=== PATIENT | male | born 1970 | race Caucasian/White ===

== ENCOUNTER → 2024-04-14 | Outpatient (CLI) | payer OTHER, SELFPAY ==
[2024-04-14 09:41] LABS: ALB/GLOB Ratio 0.6 RATIO (0.9-2.4); AST(SGOT) 19 U/L (15-37); Alanine Aminotransfer ALT/SGPT 23 U/L (16-61); Albumin, Serum 3.2 g/dL (3.2-5.0); Alkaline Phosphatase 44 U/L (45-117); Anion Gap 7 (5-15); BUN 14 mg/dL (7-18); Calcium,Total 8.9 mg/dL (8.5-10.1); Chloride 101 mmol/L (98-107); Cholesterol 185 mg/dL (200); Creatinine, Serum 1.17 mg/dL (0.70-1.30); EST Glomerular Filtration Rate 69 mL/min (>60); Est Glom Filt Rate - Afr Amer 84 mL/min (>60); Globulin 5.1 g/dL (2.2-4.2); Glucose 109 mg/dL (74-106); High Density Lipoprotein 47 mg/dL; PSA,Total - Annual Screen 2.67 ng/mL (0.00-4.00); Potassium 2.9 mmol/L (3.5-5.1); Protein, Total 8.3 g/dL (6.4-8.2); Sodium Level 138 mmol/L (136-145); Triglycerides 177 mg/dL; Very Low Density Lipoprotein 35 mg/dL (5-40)
[2024-04-14 10:38] LABS: Microalbumin,Random Urine 16.6 mg/L (NO RANGE EST.); Microalbumin:Creatinine Ratio 5.6 mg/g CRE (<30 mg/g CRE)
== END | disposition home or self-care (01) ==
LOC: LAB 08:58
PROVIDERS: PCP Preventive Medicine Occupational Medicine; Referring Provider Preventive Medicine Occupational Medicine; Visit Provider Preventive Medicine Occupational Medicine
DX: I10 Essential (primary) hypertension (principal); E78.2 Mixed hyperlipidemia; Z12.5 Encounter for screening for malignant neoplasm of prostate
CPT/HCPCS: 36415; 80053; 80061; 82043; 82570; 84153; G0103

== ENCOUNTER → 2025-04-06 | Outpatient (CLI) | payer OTHER, SELFPAY ==
--- OUTSIDE RECORDS SUMMARY | 2025-04-06 10:12 | XMS RPT_ITS | CCD ---
Author Organization [facility] Care Team Providers Care Lumber Mover Name Role Phone Cheyenne Espitia Primary Care Provider EDWINA BARBA DO Primary Care Physician [phone] EDWINA BARBA DO Attending Unavailable EDWINA BARBA DO Primary Care Unavailable Edwina Barba DO Primary Care Provider Cheyenne Espitia MD Primary Care Provider EDWINA BARBA Primary Care Unavailable ZAIDA WEEKS Attending Unavailable SELF Referring Unavailable EDWINA BARBA Primary Care Unavailable NIMISHA SORTO Attending Unavailable Edwina Barba Primary Care Unavailable SUNNY REED Attending Unavailable Edwina Barba Referring Unavailable Edwina Barba Attending Unavailable Edwina Barba Primary Care Unavailable Allergies Allergy Classification Reported Allergen(s) Allergy Type Date of Onset Reaction(s) Facility (7 sources) Penicillins; Translations: [PENICILLINS] Propensity to adverse reactions to drug 9 [place], [place] (4 sources) Penicillins Drug Allergy 9 [facility] (1 source) Penicillin; Translations: [penicillin] Drug Allergy Eruption of skin (disorder) [facility] (2 sources) Penicillins Drug Allergy 9 [facility] (1 source) Penicillins Drug Allergy 9 [facility] Medications Current Medications Medication Drug Class(es) Dates Sig (Normalized) Sig (Original) acetaminophen 325 mg / HYDROcodone bitartrate 5 mg oral tablet (1 source) Opioid Agonist Start: 9 take 1 tablet by mouth once as needed HYDROcodone-acetaminoph en (NORCO) 5-325 MG per tablet Take 1 tablet by mouth as needed. 0 02/05/2019 Active cyclobenzaprine hydrochloride 10 mg oral tablet (1 source) Muscle Relaxant Start: 9 cyclobenzaprine (FLEXERIL) 10 MG tablet as needed 0 02/05/2019 Active hydroCHLOROthiazide 25 mg oral tablet (9 sources) Thiazide Diuretic Start: 2 End: 3 take 1 tablet by mouth once daily hydroCHLOROthiazide (HYDRODIURIL, ESIDRIX) 25 mg tablet Indications: Essential hypertension Take 1 tablet by mouth once daily. 90 tablet 3 01/06/2022 Active Start: 05-27-2020 End: 11-27-2020 take 1 tablet by mouth once daily hydroCHLOROthiazide (HYDRODIURIL, ESIDRIX) 25 mg tablet Indications: Essential hypertension take 1 tablet by mouth once daily 30 tablet 5 05/27/2020 11/27/2020 Discontinued Comment on above: TAKE 1 TABLET ONCE D AILY Take 1 tablet by ally th once daily. methylPREDNISolone (3 sources) Corticosteroid Start: 01-06-2022 End: 01-12-2022 methylPREDNISolone (MEDROL, MARIA GUADALUPE,) 4 mg Dose-Pack Indications: Acute pain of left shoulder Follow dosing instructions, take with food. 1 Package 0 01/06/2022 01/12/2022 Active Start: 10-29-2020 End: 11-04-2020 methylPREDNISolone (MEDROL, MARIA GUADALUPE,) 4 mg Dose-Pack Follow dosing instructions, take with food. 1 Package 10/29/2020 11/04/2020 Start: 03-02-2019 methylPREDNISo lone (MEDROL DOSEPACK) 4 MG tablet Indications: History of microdiscectomy , Herniated nucleus pulposus, L4-5 left Take 1 tablet by mouth See Admin Instructions Take by mouth. 1 kit 0 03/02/2019 Active Comment on above: Follow dosing instru ctions, take with food. mupirocin 0.02 mg/mg topical ointment (1 source) RNA Synthetase Inhibitor Antibacterial Start: 09-27-2022 mupirocin 2% topical ointment Apply 1 yaron, Topical, TID, # 15 gram(s), 1 Refill(s), Pharmacy: [facility]/pharmacy #[id number], Ointment, 183, cm, 09/27/22 13:26:00 EST, Height, 105.7 Start Date: 09/27/22 Status: Ordered Completed/Discontinued Medications Medication Drug Class(es) Dates Sig (Normalized) Sig (Original) azithromycin 500 mg oral tablet (1 source) Macrolide Antimicrobial Start: 04-02-2024 End: 04-07-2024 take 1 tablet by mouth once daily azithromycin (ZITHROMAX) 500 mg tablet Indications: Sore throat , Bacterial pharyngitis Take 1 tablet by mouth once daily for 5 days. 5 tablet 04/02/2024 04/07/2024 clotrimazole 10 mg oral lozenge (1 source) Azole Antifungal Start: 04-02-2024 End: 04-09-2024 clotrimazole (MYCELEX) 10 mg michelle Indications: Sore throat , Thrush Use 1 Michelle as instructed five times a day for 7 days. 35 tablet 04/02/2024 04/09/2024 dexamethasone phosphate 10 mg/ml injectable solution (2 sources) Corticosteroid Start: 04-02-2024 End: 04-02-2024 dexAMETHasone sodium phosphate 10 mg for oral administration (DECADRON) Start: 04-02-2024 End: 04-02-2024 take 1 dose by mouth once 10 mg, ORAL, ONCE, 1 dose, O n 04/02/24 at 1900, For Oral Use Only - May be mixed with food or beverage for administration. diclofenac sodium 75 mg delayed release oral tablet (5 sources) Nonsteroidal Anti-inflammatory Drug Start: 05-15-2019 End: 06-14-2019 take 1 tablet by mouth twice daily diclofenac (VOLTAREN) 75 MG EC tablet Take 1 tablet by mouth 2 times daily 60 tablet 0 05/15/2019 06/14/2019 Discontinued (Therapy completed) gabapentin 300 mg oral capsule (10 sources) Anti-epileptic Agent Start: 05-15-2019 End: 06-14-2019 take 1 capsule by mouth three times daily gabapentin (NEURONTIN) 300 MG capsule Take 1 capsule by mouth 3 times daily for 30 days. 90 capsule 0 05/15/2019 06/14/2019 Discontinued (Therapy completed) End: 06-14-2019 gabapentin (NEURONTIN) 100 M G capsule Take 100 mg by mouth as needed. 0 06/14/2019 Discontinued (Therapy completed) Lisinopril (6 sources) Angiotensin Converting Enzyme Inhibitor End: 06-14-2019 LISINOPRIL PO Indications: patient just recently prescribed but has not filled prescription yet. Take by mouth Indications: patient just recently prescribed but has not filled prescription yet. 0 06/14/2019 Discontinued (Therapy completed) LISINOPRIL PO In dications: patient just recently prescribed but has not filled prescription yet. Take by mouth Indications: patient just recently prescribed but has not filled prescription yet. 0 Active prednisoLONE acetate 10 mg/ml ophthalmic suspension (4 sources) Corticosteroid Start: 02-22-2020 End: 01-06-2022 prednisoLONE acetate (PRED FORTE) 1 % ophthalmic suspension Indications: Episcleritis of both eyes Use 1 Drop in both eyes three times daily. X 1 week, then twice a day x 1 week, then once a day x 1 week 1 Bottle 02/22/2020 01/06/2022 Discontinued (Course of therapy completed) Start: 02-22-2020 End: 01-06-2022 prednisoLONE acetate (PRED F ORTE) 1 % ophthalmic suspension Indications: Episcleritis of both eyes Use 1 Drop in both eyes three times daily. X 1 week, then twice a day x 1 week, then once a day x 1 week 1 Bottle 0 02/22/2020 01/06/2022 Discontinued (Course of therapy completed) Comment on above: Use 1 Drop in both e yes three times daily. X 1 week, then twice a day x 1 week, then once a day x 1 week Problems Active Problems Problem Classification Problem Date Documented Date Episodic/Chronic Disorders of lipid metabolism (1 source) Mixed hyperlipidemia; Translations: [Mixed hyperlipidemia] Onset: 04-04-2025 Chronic Essential hypertension (12 sources) Essential hypertension; Translations: [Essential (primary) hypertension] Onset: 02-01-2019 02-01-2019 Chronic Fluid and electrolyte disorders (1 source) Hypokalemia; Translations: [Hypokalemia] Onset: 04-04-2025 Episodic Hemorrhoids (1 source) Hemorrhoids 09-27-2022 Episodic Other connective tissue disease (1 source) Swelling of lower limb; Translations: [Leg swelling] Episodic Other eye disorders (2 sources) Other specified disorders of eye and adnexa; Translations: [Other ill-defined disorders of eye] Onset: 03-02-2025 03-02-2025 Episodic Other non-traumatic joint disorders (1 source) Shoulder pain; Translations: [Pain in left shoulder] Episodic Other non-traumatic joint disorders (1 source) Pain in right shoulder; Translations: [Pain in joint, shoulder region] 10-29-2020 Episodic Other nutritional; endocrine; and metabolic disorders (1 source) Obese class I; Translations: [Obesity, unspecified] Chronic Other screening for suspected conditions (not mental disorders or infectious disease) (2 sources) Patient encounter status; Translations: [Encounter for screening for malignant neoplasm of colon] Onset: 04-04-2025 Episodic Other upper respiratory disease (1 source) Ulcer of nose 09-27-2022 Episodic Spondylosis; intervertebral disc disorders; other back problems (1 source) Degeneration of lumbar intervertebral disc 09-27-2022 Chronic Unclassified (2 sources) Patient encounter status 09-27-2022 Past or Other Problems Problem Classification Problem Date Documented Date Episodic/Chronic Bacterial infection; unspecified site (1 source) Other specified bacterial agents as the cause of diseases classified elsewhere; Translations: [Bacterial pharyngitis] Onset: 04-02-2024 Episodic Mycoses (2 sources) Candidiasis of mouth; Translations: [Candidal stomatitis] Onset: 04-02-2024 04-02-2024 Episodic Other upper respiratory infections (4 sources) Sore throat symptom; Translations: [Acute pharyngitis, unspecified] Onset: 04-02-2024 04-02-2024 Episodic Spondylosis; intervertebral disc disorders; other back problems (7 sources) Radiculopathy due to lumbar intervertebral disc disorder; Translations: [Intervertebral disc disorders with radiculopathy, lumbar region] Onset: 12-29-2018 12-29-2018 Episodic Results Test Name Value Interpretation Reference Range Facility [facility] 03-02-2025 CNOV Office Visit ([facility] ) RAUL FARAH SR ([id number]) 1970 M Date Time Provider Department 03/02/25 2:20 PM [facility] During your visit today, we recorded the following information about you: Temperature Pulse Respiration Blood pressure 97.6 degrees 88/minute 18/minute 138/93 Weight 104.3 kg Nimisha Sorto, RIP.BEATER ROOM SUPERVISOR 03/02/2025 3:25 PM Signed - Use lubricating (artificial tears) eye drops as directed and see if the redness and discomfort improve. - If needed, try an [id number] allergy eye drop (Pataday) to relieve irritation. - If your symptoms do not improve, call the clinic tomorrow to check if we have restocked the fluorescein (eye stain) supplies. If we have them, come back for the stain test to rule out a scratch and, if necessary, begin antibiotic eye drops. - If you cannot wait for our supplies or your eye pain worsens, go to the emergency room for an eye stain examination and possible antibiotic treatment. Nimisha Sorto, RIP.BEATER ROOM SUPERVISOR 03/02/2025 4:31 PM Signed [facility] Carter Jason Farah is a 54 year old male. Patient presents with: Eye Problem: LT eye irritation/ redness, Pt states he feels like something is in his eye x 2-3 days Eye Problem Eye Redness and Pain: - Redness and mild pain in the eye x2 days. - Denies pruritus, photophobia, or significant changes in vision; notes a glassy feeling in the eye. - Denies wearing contact lenses. - No known seasonal allergies; denies rhinorrhea, nasal congestion, or cough. - Denies rubbing the eye. - Tried re-wetting drops without relief. 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 Review of Systems Eyes: (+) eye redness, (+) ocular pain, (+) ocular pressure, (-) eye pruritus, (-) photophobia, (-) visual changes, (-) eye dryness Ears/Nose/Mouth/Throat : (-) rhinorrhea, (-) nasal congestion Respiratory: (-) cough Objective BP 138/93 Pulse 88 Temp 36.4 ?C (97.6 ?F) Resp 18 Wt 104.3 kg (230 lb) SpO2 97% BMI 30.35 kg/m? Physical Exam Vitals and nursing note reviewed. Constitutional: General: He is not in acute distress. Eyes: Pupils: Pupils are equal, round, and reactive to light. Comments: The lateral aspect of the sclera to the left eye erythematous. No drainage noted. No foreign object visualized. Cardiovascular: Rate and Rhythm: Normal rate and regular rhythm. Heart sounds: Normal heart sounds. No murmur heard. No friction rub. No gallop. Pulmonary: Effort: Pulmonary effort is normal. No respiratory distress. Breath sounds: Normal breath sounds. No stridor. No wheezing, rhonchi or rales. Skin: General: Skin is warm and dry. Capillary Refill: Capillary refill takes less than 2 seconds. Neurological: Mental Status: He is alert and oriented to person, place, and time. Psychiatric: Behavior: Behavior is cooperative. 1. Irritation of left eye (H57.89) - Left eye erythematous with mild discomfort, no pruritus, photophobia, or significant visual changes; no foreign bodies or discharge observed on examination. - Differential diagnosis includes conjunctivitis and corneal abrasion. - Unable to perform fluorescein staining due to lack of supplies; advised patient to visit the emergency room for staining to rule out corneal abrasion, which may require antibiotic eye drops. At this time patient declines going to the ED for the fluorescein stain. He would like to try OTC drops first. - Recommended trial of artificial tears and allergy eye drops as directed on the labels. - I advised patient to call clinic tomorrow in regards if supplies have come in to have the fluorescein stain completed if no improvement with OTC eyedrops. - If you cannot wait for our supplies or your eye pain worsens, go to the emergency room for an eye stain examination and possible antibiotic treatment. - Advised patient to monitor symptoms and return for evaluation if no improvement or worsening occurs; patient understands and agrees with the plan. and Recording using [employer] software for draft documentation of the visit was discussed with the patient/authorized wireless sales representative; all questions welcomed and answered. Patient/authorized wireless sales representative agreed to proceed MDM Procedures Referring Provider: SELF [200] Allergies As of Date: 03/02/2025 Noted Allergy Reaction PENICILLINS 12/26/2018 4 - Hives Date Reviewed: 03/02/2025 Reviewed by: Nimisha Sorto APRN.BEATER ROOM SUPERVISOR - Fully Assessed Reason for Visit: Eye Problem [43] Cmt: LT eye irritation/ redness, Pt states he feels like something is in his eye x 2-3 days Primary Visit Diagnosis:Irritation of left eye [H57.89] Prescriptions as of 03/02/2025 - hydroCHLOROthiazide (HYDRODIURIL (more content not included)... Normal [facility] Comprehensive Metabolic Prof ilon 04-14-2024 Albumin [Mass/Vol] 3.2 g/dL Normal 3.2-5.0 [facility] Comment on above: Performed By: #### L 500.4050, L500.4100, L501.9910, L502.0250 #### [facility] [address] [place], [address] Albumin/Globulin [Mass ratio] 0.6 {ratio} Low 0.9-2.4 [facility] Comment on above: Performed By: #### L 500.4050, L500.4100, L501.9910, L502.0250 #### [facility] [address] [place], [address] ALK P 44 U/L Low 45-117 [facility] Comment on above: Performed By: #### L 500.4050, L500.4100, L501.9910, L502.0250 #### [facility] [address] [place], [address] ALT [Catalytic activity/Vol] 23 U/L Normal 16-61 [facility] Comment on above: Performed By: #### L 500.4050, L500.4100, L501.9910, L502.0250 #### [facility] [address] [place], [address] AST [Catalytic activity/Vol] 19 U/L Normal 15-37 [facility] Comment on above: Performed By: #### L 500.4050, L500.4100, L501.9910, L502.0250 #### [facility] [address] [place], [address] Bilirubin [Mass/Vol] 0.70 mg/dL Normal 0.20-1.00 [facility] Comment on above: Result Comment: For patients on eltrombopag therapy, use of Dimension [place] TBIL is not recommended. Performed By: #### L 500.4050, L500.4100, L501.9910, L502.0250 #### [facility] [address] [place], [address] BUN/CRE 12.0 RATIO Normal 10-20 [facility] Comment on above: Performed By: #### L 500.4050, L500.4100, L501.9910, L502.0250 #### [facility] [address] [place], [address] CA,Total 8.9 mg/dL Normal 8.5-10.1 [facility] Comment on above: Performed By: #### L 500.4050, L500.4100, L501.9910, L502.0250 #### [facility] [address] [place], [address] Chloride [Moles/Vol] 101 mmol/L Normal 98-107 [facility] Comment on above: Performed By: #### L 500.4050, L500.4100, L501.9910, L502.0250 #### [facility] [address] [place], [address] CO2 [Moles/Vol] 30.0 mmol/L Normal 21.0-32.0 [facility] Comment on above: Performed By: #### L 500.4050, L500.4100, L501.9910, L502.0250 #### [facility] [address] [place], [address] Creatinine [Mass/Vol] 1.17 mg/dL Normal 0.70-1.30 [facility] Comment on above: Result Comment: The validity of the calculated GFR GFRAA in patients over 70 years has not been determined. Clinical correlation is essential. Performed By: #### L 500.4050, L500.4100, L501.9910, L502.0250 #### [facility] [address] [place], [address] EST GFR - AA 84 mL/min Normal >60 [facility] Comment on above: Result Comment: Afri can Danish GFR Calc Performed By: #### L 500.4050, L500.4100, L501.9910, L502.0250 #### [facility] [address] [place], [address] GAP 7 Normal 5-15 [facility] Comment on above: Performed By: #### L 500.4050, L500.4100, L501.9910, L502.0250 #### [facility] [address] [place], [address] GFR/1.73 sq M.predicted among non-blacks MDRD (S/P/Bld) [Vol rate/Area] 69 mL/min/{1.73_m2} Normal >60 [facility] Comment on above: Result Comment: Non- GFR Calc Performed By: #### L 500.4050, L500.4100, L501.9910, L502.0250 #### [facility] [address] [place], [address] Globulin (S) [Mass/Vol] 5.1 g/dL High 2.2-4.2 [facility] Comment on above: Performed By: #### L 500.4050, L500.4100, L501.9910, L502.0250 #### [facility] [address] [place], [address] Glucose [Mass/Vol] 109 mg/dL High 74-106 [facility] Comment on above: Result Comment: Fast ing Glucose result from 100 to 125 mg/dL suggests IMPAIRED HOMEOSTASIS per A.D.A. criteria. Performed By: #### L 500.4050, L500.4100, L501.9910, L502.0250 #### [facility] [address] [place], [address] Potassium [Moles/Vol] 2.9 mmol/L Low 3.5-5.1 [facility] Comment on above: Performed By: #### L 500.4050, L500.4100, L501.9910, L502.0250 #### [facility] [address] [place], [address] Sodium [Moles/Vol] 138 mmol/L Normal 136-145 [facility] Comment on above: Performed By: #### L 500.4050, L500.4100, L501.9910, L502.0250 #### [facility] [address] [place], [address] T PROT 8.3 g/dL High 6.4-8.2 [facility] Comment on above: Performed By: #### L 500.4050, L500.4100, L501.9910, L502.0250 #### [facility] [address] [place], [address] Urea nitrogen [Mass/Vol] 14 mg/dL Normal 7-18 [facility] Comment on above: Performed By: #### L 500.4050, L500.4100, L501.9910, L502.0250 #### [facility] [address] [place], [address] Lipid Profileon 04-14-2024 Cholesterol [Mass/Vol] 185 mg/dL Normal 200 [facility] Comment on above: Result Comment: <200 mg/dL Desirable 200-240 mg/dL Borderline >240 mg/dL High Risk Performed By: #### L 500.4050, L500.4100, L501.9910, L502.0250 #### [facility] [address] [place], [address] Cholesterol in HDL [Mass/Vol] 47 mg/dL Normal [facility] Comment on above: Result Comment: The drugs N-Acetylcysteine and Metamizole may falsely depress this assay. Reference Range HDL <40 mg/dL Low HDL Cholesterol HDL >or= 60 mg/dL High HDL Cholesterol Performed By: #### L 500.4050, L500.4100, L501.9910, L502.0250 #### [facility] [address] [place], [address] Cholesterol in LDL [Mass/Vol] 103 mg/dL Normal 0-130 [facility] Comment on above: Performed By: #### L 500.4050, L500.4100, L501.9910, L502.0250 #### [facility] [address] [place], [address] Cholesterol in VLDL [Mass/Vol] 35 mg/dL Normal 5-40 [facility] Comment on above: Performed By: #### L 500.4050, L500.4100, L501.9910, L502.0250 #### [facility] [address] [place], [address] Triglyceride [Mass/Vol] 177 mg/dL Normal [facility] Comment on above: Result Comment: The drugs N-Acetylcysteine and Metamizole may falsely depress this assay. Serum Triglycerides Reference Interval Normal <150 mg/dL Borderline high 150 - 199 mg/dL High 200 - 499 mg/dL Very High > or = 500 mg/dL Performed By: #### L 500.4050, L500.4100, L501.9910, L502.0250 #### [facility] [address] [place], [address] Microalb:Creat Ratio,Random URon 04-14-2024 Creatinine [Mass/Vol] 297.00 mg/dL Normal NO RAN GE EST. [facility] Comment on above: Performed By: #### L 500.4050, L500.4100, L501.9910, L502.0250 #### [facility] [address] [place], [address] MALB:CRE 5.6 mg/g CRE Normal <30 mg/g CRE [facility] Comment on above: Performed By: #### L 500.4050, L500.4100, L501.9910, L502.0250 #### [facility] [address] [place], [address] MICROALBUMIN,UR 16.6 mg/L Normal NO RANGE EST. [facility] Comment on above: Performed By: #### L 500.4050, L500.4100, L501.9910, L502.0250 #### [facility] [address] [place], [address] PSA,Total - Annual Screenon 04-14-2024 PSA,TOT SCREEN 2.67 ng/mL Normal 0.00-4.00 [facility] Comment on above: Result Comment: This test was performed using the TPSA assay method for the [employer] chemistry system. Values obtained with different assay methods cannot be used interchangably. When changing PSA assays in the course of monitoring a patient, additional sequential testing should be carried out to confirm baseline values. Performed By: #### L 500.4050, L500.4100, L501.9910, L502.0250 #### [facility] [address], [address] CNOVon 04-02-2024 CNOV Office Visit ([facility] ) RAUL FARAH ([id number]) 1970 M Date Time Provider Department 04/02/24 6:20 PM ZAIDA WEEKS During your visit today, we recorded the following information about you: Temperature Pulse Respiration Blood pressure 98.1 degrees 106/minute 16/minute 122/82 Zaida Weeks APRN.[facility] 04/02/2024 7:17 PM Addendum -Please see your PCP if your symptoms persist. Go directly to Emergency Department with high fevers, chest pain, difficulty breathing or not able to tolerate fluids. -Start taking medication as soon as possible. If you are not feeling any better within 24 to 48 hours or continue to have fevers, go to the emergency room. -We did a swab for fungal infection of the throat, we will let you know if anything comes back positive. This may take a few days to show results. Start taking Mycelex GABY. -We also swabbed you for strep. -I want to start treating you for both because of severity of your symptoms and how long you have had it. -Start taking azithromycin for bacterial infection. -You can continue taking Claritin, using the throat spray, and DayQuil NyQuil. Take ibuprofen or Tylenol for fevers or pain. -Change your toothbrush 24 hours after starting antibiotic so you do not reinfect yourself. STREP INFECTIONS: Streptococcal bacteria can cause a sore throat, ear and sinus infections, and skin diseases. Strep throat is diagnosed by a special throat swab or culture test. These infections require either an antibiotic shot or an oral antibiotic medicine to get rid of all the bacteria and prevent rheumatic fever, a dangerous complication. The symptoms of Strep infection, however, usually get better after just 2-3 days of drug treatment. These infections are very contagious; any close contacts who have a fever, sore throat, or illness symptoms should see their doctor right away. Strep is no longer contagious after 24 hours of antibiotic treatment so you may return to school or work if your fever and pain are better in one day. Strep infections can cause serious complications including throat abscess, rheumatic fever and kidney disease, so be sure to take all your antibiotic medicine. See your doctor or return here if your symptoms worsen or are not improved in 3 days or for difficulty breathing or inability to swallow. THRUSH: DEFINITION: White, irregularly shaped patches that coat the inside of the mouth and sometimes the tongue, adhere to the mouth, and cannot be washed away or wiped off easily like milk. (If the only symptom is a uniformly white tongue, it's due to a milk diet, not thrush.) Thrush causes mild discomfort. Bottle-fed or breast-fed child CAUSE: Thrush is caused by a yeast (Coral) that grows rapidly on the lining of the mouth in areas abraded by prolonged sucking (as when a baby sleeps with a bottle or pacifier). A large pacifier or nipple can also injure the lining of the mouth. Thrush may also occur when your child has recently been taking a broad-spectrum antibiotic. Thrush is not contagious since it does not invade normal tissue. HOME CARE: Nystatin Oral Medicine. The drug for clearing this up is nystatin oral suspension. It requires a prescription. Give 1 ml of nystatin four times daily. Place it in the front of the mouth on each side (it doesn't do any good once it's swallowed). If the thrush isn't responding, rub the nystatin directly on the affected areas with a cotton swab or with gauze wrapped around your finger. Apply it after meals,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 PROCEDURE NOTE PREOPERATIVE DIAGNOSIS(ES) Lumbar radiculopathy Lumbar disc displacement Lumbar canal stenosis without neurogenic claudication Lumbar DDD POSTOPERATIVE DIAGNOSIS(ES): Same OPERATION: Left L4-5 lumbar transforaminal epidural steroid injection under fluoroscopy. ANESTHESIA: versed 3mg, fentanyl 50 mcg IV INDICATIONS: The patient presents for lumbar transforaminal epidural steroid injection. Since the last visit, the patient denies any new pain complaints and denies any focal neurological deficits. As discussed and outlined in the office and confirmed today, the plan is to proceed with lumbar transforaminal epidural steroid injection. The risks and benefits of the procedure were discussed. Specifically, the risks of bleeding, infection, inadvertent dural puncture, spinal heaches, vasovagal reaction, epidural hematoma, partial or permanent nerve injury were covered. The potential side effects of medications used in procedures including increase in lumbar pain, headaches, facial redness or warmth (flushing), anxiety or mood swings, sleeplessness, fever, high blood sugar, brief reduction in immunity were discussed. The patient expressed understanding of potential risks and wishes to proceed with the procedure. OPERATIVE PROCEDURE: The patient was brought to the operating room. The patient was placed in the prone position with routine monitors placed. The lower back was prepped in sterile fashion. Upon AP projection under fluoroscopy, L4-5 level was identified. The fluoroscopy was rotated in oblique projection to identify the neuroforamen. Entry point was marked and anesthetized with 0.25% Marcaine. This was followed by insertion of a 5 inch spinal needle, which was inserted and advanced towards the 12 o' clock of the L4-5 neuroforamen. Once the Needle tip contacted the inferior lateral aspect of the pedicle, aspiration was performed which was negative for blood or CSF. This was followed by injection of Omnipaque 300, which revealed a spread through the neuroforamen into the anterior epidural space. There was no evidence of intravascular or intrathecal flow. This was then followed by a total injection of 3 mL of 0.25% Marcaine with 40 mg of Depomedrol. The patient tolerated the procedure well. The needle was removed intact. Dry dressing was placed over the injection site. The patient was taken to the recovery room in stable condition. EBL: nil Start time: 11:16 AM End time: 11:21 AM I was present the entire time and personally performed the procedure. SIGNATURE: Toñito Stafford MD DATE: January 11, 2019 TIME: 11:23 AM [facility] PT EDon 01-11-2019 PT ED HNO ID: [id number] Author: Katherine Jose RN Service: Nursing Author Type: Registered Nurse Type: Patient Education Filed: 01/11/2019 11:45 AM Note Text: POST OP LEARNING RESPONSE INSTRUCTION PROVIDED TO: Patient METHOD OF INSTRUCTION: Teach Back . Written instruction - handouts Verbal instruction PATIENT / FAMILY RESPONSE: Verbalizes understanding of: POST-PROCEDURE INSTRUCTIONS-Correct actions to take to reduce post procedure complications FOLLOW-UP PLAN: Complete - No need for follow-up SUPPLEMENTAL MATERIAL: None REFERRAL (RECOMMENDATION): None Electronically Signed By: Katherine Jose RN In Department: [facility] SURGERY [facility] PT ED HNO ID: [id number] Author: Dimitri Curry RN Service: Nursing Author Type: Registered Nurse Type: Patient Education Filed: 01/11/2019 10:24 AM Note Text: PRE OP LEARNING ASSESSMENT PROCEDURE/SURGERY: SURGERY: pain block READINESS TO LEARN COGNITIVE ABILITY: Alert and oriented MOTIVATION TO LEARN: Eager FAMILY SUPPORT: High - Very involved in pt care PATIENT LEARNS BEST BY: Written Instruction - Hand-outs Verbal Instruction FACTORS AFFECTING LEARNING: None PHYSICAL LIMITATIONS AFFECTING LEARNING: None Electronically Signed By: Dimitri Curry RN In Department: [facility]GERY [facility] XR FLUOROSCOPYon 01-11-2019 XR FLUOROSCOPY * * *Final Report* * * DATE OF EXAM: Jan 11 2019 11:24AM [facility] 5513 - XR FLUOROSCOPY / PROCEDURE REASON: pain * * * * Physician Interpretation * * * * Study: Pain management. XR FLUOROSCOPY HISTORY: Indication: pain PAIN TECHNIQUE: Fluoroscopic Radiation Summary: Plane A, Air Kerma: 8.5 mGy Dose Area Product (DAP): 798.4 mGy*cmS2 Fluoro time: 0:15 min:sec Images obtained: 3 Spot film images under fluoroscopic guidance. Images were stored in a permanent archive. Comparison: NONE. RESULT: Findings: Tip of the needle projects over the lateral aspect of L5 vertebra on the LEFT side. Contrast is seen with the tip in the See procedural note in Epic for further discussion. IMPRESSION: As discussed above Assistant Reading Teacher: CRISTÓBAL Transcribe Date/Time: Jan 11 2019 1:12P Dictated by : RAUL FARAH DO This examination was interpreted and the report reviewed and electronically signed by: RAUL FARAH DO on Jan 11 2019 1:12PM EST [id number] [facility] HOSPon 01-01-2019 HOSP Patient:Raul Farah MRN: Height:6' .008(1.829 m) Weight:227 lb 1.2 oz (103 kg) Outpatient Medications as of 01/11/19: NAPROXEN ORAL gabapentin (NEURONTIN) 300 mg capsule meloxicam (MOBIC) 15 mg tablet Admission/Clinic Administered Medications as of 01/11/19: NaCl 0.9% iv infusion Problem List: Intervertebral disc disorder with radiculopathy of lumbar region [M51.16] Allergies: Penicillins Date Verified: 01/11/19 Lab Values No results within the last 30 days for the following basenames: K,HCT Progress Notes (PT [facility]): Cliff Chapman, PT 01/04/2019 5:34 PM Signed Episode Visit Count: 1 Therapist That Will Oversee The Plan Of Care: Cliff Chapman Start of Care Date: 01/04/19 Onset Date: 11/20/18 Patient Identified by Name and Date of : Yes [facility] PHYSICAL THERAPY EVALUATION PLAN OF CARE: Assessment: Raul Farah presents with the diagnosis of L4-5 disc herniation with left sided radicular symptoms. He presents with impairments of severely limited lumbar range of motion, poor core strength, poor body mechanics, currently unable to perform work tasks, and has decreased tolerance for sitting, standing, walking, and sleeping. He may benefit from skilled therapy services to improve the above noted deficits to decrease pain and return to prior level of function. Patient responded very well today in clinic to extension bias and traction. He was able to bear weight equally through both legs post session and has centralized symptoms to the hip. Patient thoroughly educated on centralization vs peripheralization and positions to avoid to exacerbate disc herniation. Classification Low Back Pain Subgroup Classification: Specific exercise subgroup: recommended visits 8. Specific Exercies Subgroup Classification based on: directional preference;centralizat ion Prognosis: Fair Fair due to: clinical presentation;limited tolerance to activity;occupational demands Goals for Episode of Care: created on 01/04/19 through 03/06/19 Independent in home exercises. Patient will decrease pain rating by 2 points to meet minimal clinical important difference for numeric pain rating scale. Restore pain-free lumbar ROM to WNL in all directions to allow for improved functional movility Stand / Walk As needed for ADLs and work tasks without pain/symptoms. Sleep through night without pain/symptoms. Maintain proper sitting posture throughout session Patient will be able to correct postural deviations independently in order to improve postural alignment of trunk during functional activities, allow for normal mechanics, to decrease current pain and prevent future recurrence. Patient will increase strength of trunk to 5/5 to allow for return to prior functional status and perform ADLs. Planned Interventions, Frequency, and Duration: Current Frequency: 2x/week Duration: 8 weeks Total Number of Visits Planned: 12 Planned Treatment Interventions: Therapeutic exercise;Manual therapy;Neuromuscular re-education;Self-usp management;Patient/Fam alvaro/Caregiver Education;Body Mechanics Training Patient demonstrates good understanding of plan of care and treatment. The above goals and plan of care were discussed and agreed upon by patient/family. SUBJECTIVE: Ralu Farah is a 48 year old male seen today for Back pain since November 20. Red Flags Vertebral Fracture Clinical Reasoning: No identified risk factors Abdominal Aortic Aneurysm Clinical Reasoning: No identified risk factors. Cancer Clinical Reasoning: No identified risk factors. Infection Clinical Reasoning: No identified risk factors. Cauda Equina Syndrome Clinical Reasoning: No identified risk factors. Red Flags - Cervical Cancer Clinical Reasoning: No identified risk factors. Infection Clinical Reasoning: No identified risk factors. Pain: Pain Pain Level: 10 Pain Location: Buttocks - Left;Foot - Left Description: Numbness;Tingling;Achi ng;Sharp Frequency: Continuous Post Treatment Pain Post Treatment Pain Score: 4/10 Post Treatment Pain Location: Buttocks - Left Post Treatment Pain Description: Sore OBJECTIVE MEASURES WITH LEVEL OF FUNCTION: Lumbar Spine AROM Lumbar Flexion: Major limitation Lumbar Extension: Major limitation Lumbar R Side-Bend: Moderate limitation Lumbar L Side-Bend: Major limitation Lumbar R Rotation: Major limitation Lumbar L Rotation: Major limitation Repeated Test Movements - Lumbar REIL - Symptoms During: decreases REIL - Symptoms After: better;centralized LE Strength Trunk Strength: 2+/5 R LE Strength: 5/5 L LE Strength: 5/5 Special Tests - Hip and Spine Hip and Spine Special Tests: SLR Test SLR Test: Left Positive;Right Positive Education: Education Learning Preferences: Demonstration;Explanat ion;Performance;Printe d Materials Barriers: None Learning/educational needs: Home exercise program;Plan of Care;Posture;Body Mechanics Education Provided: Yes, see treatment interventions for education provided Education Provided To: Patient Education Mode/Type: Demonstration;Explanat ion/Discussion;Literat ure/Printed Materials;Performance; Teach Back Response to Education/Teach Back: States/Identifies;Retu rn Demonstration TREATMENT: Evaluation Therapeutic Exercise: 1: Prone lying x 5 min 2: Prone propped on eblows x 4 min 3: Prone press ups x10 4: Pt educated on proper posture and postioning, motions to avoid, and concepts of centralization vs peripheralization 5: Supine lying with feet propped on stool x 5 min Skilled Intervention: Patient was educated in proper exercise technique and purpose for exercises. Skilled judgment was provided in selection of appropriate interventions. Provided written instruction for home exercise program to facilitate proper performance and compliance. Correct performance of therapeutic exercises was facilitated with verbal, visual and tactile cuing. Manual Therapy: 1: Manual lumbar belt traction with feet elevated on stool x 10 min Skilled Intervention: Manual skills to improve joint mobility, ROM, and decrease pain. Utilized anatomy knowledge of the therapist, and assessment of patient's response to intervention. Billing: [facility]: Evaluation - Low Complexity (23492) Therapeutic Exercise (56071): 1:1 time: 18 minutes (1 unit: 8-22 mins) Manual Therapy (22367): 1:1 time: 10 minutes (1 unit: 8-22 mins) Total time: 49 minutes Cliff Chapman PT Progress Notes ([facility]): Jayla Mejia 01/02/2019 3:02 PM Signed Patient called and stated he tried going to the pharmacy to get a refill of gabapentin and the pharmacy refused to fill it. Patient said his PCP was the one who originally prescribed it and after his MRI Dr. Espitia told him to stop taking it. He then saw Mo Harden and he told the patient to take more of it. It looks like Mo Harden refilled it but the pharmacy seems to have some sort of complications with the refill. Please advise Mo Harden PAC 01/03/2019 10:17 AM Signed I called the pharmacy and clarified the prescription. They have my most recent Rx of 300 mg pills 3 times a day. They refilled this for him this morning. I tried to call the patient and ended up leaving a message to take as directed and call me if there are any questions. Mo Harden PAC Normal [facility] Vital Signs Date Time Vital Sign Value Performing Clinician Facility 03-02-2025 14:39-0400 Diastolic blood pressure 93 mm[Hg] Nimisha Sorto APRN.BEATER ROOM SUPERVISOR Work Phone: [facility] Comment on above: BP recheck 03-02-2025 14:39-0400 Systolic blood pressure 138 mm[Hg] Nimisha Sorto APRN.BEATER ROOM SUPERVISOR Work Phone: [facility] Comment on above: BP recheck 03-02-2025 14:37-0400 Body mass index (BMI) [Ratio] 30.35 kg/m2 Nimisha Sorto APRN.BEATER ROOM SUPERVISOR Work Phone: [facility] 03-02-2025 14:37-0400 Body temperature 97.59 [degF] Nimisha Sorto APRN.BEATER ROOM SUPERVISOR Work Phone: [facility] 03-02-2025 14:37-0400 Body weight 104.33 kg Nimisha Sorto APRN.BEATER ROOM SUPERVISOR Work Phone: [facility] 03-02-2025 14:37-0400 Heart rate 88 /min Nimisha Sorto APRN.BEATER ROOM SUPERVISOR Work Phone: [facility] 03-02-2025 14:37-0400 Respiratory rate 18 /min Nimisha Sorto APRN.BEATER ROOM SUPERVISOR Work Phone: [facility] 03-02-2025 14:37-0400 SaO2% (BldA) [Mass fraction] 97 % Nimisha Sorto APRN.BEATER ROOM SUPERVISOR Work Phone: [facility] 04-02-2024 18:25-0400 Body temperature 98.1 [degF] Zaida Shevchuk MEDICAL RECORD CODER.BEATER ROOM SUPERVISOR Work Phone: [facility] 04-02-2024 18:25-0400 Diastolic blood pressure 82 mm[Hg] Zaida Shevchuk MEDICAL RECORD CODER.BEATER ROOM SUPERVISOR Work Phone: [facility] 04-02-2024 18:25-0400 Heart rate 106 /min Zaida Shevchuk MEDICAL RECORD CODER.BEATER ROOM SUPERVISOR Work Phone: [facility] 04-02-2024 18:25-0400 Respiratory rate 16 /min Zaida Shevchuk MEDICAL RECORD CODER.BEATER ROOM SUPERVISOR Work Phone: [facility] 04-02-2024 18:25-0400 SaO2% (BldA) [Mass fraction] 98 % Zaida Shevchuk MEDICAL RECORD CODER.BEATER ROOM SUPERVISOR Work Phone: [facility] 04-02-2024 18:25-0400 Systolic blood pressure 122 mm[Hg] Zaida Shevchuk MEDICAL RECORD CODER.BEATER ROOM SUPERVISOR Work Phone: [facility] 01-06-2022 14:59-0400 Body height 185.4 cm Dasia Zach MEDICAL RECORD CODER.BEATER ROOM SUPERVISOR Work Phone: [facility] 01-06-2022 14:59-0400 Body weight 104.01 kg Dasia Zach MEDICAL RECORD CODER.BEATER ROOM SUPERVISOR Work Phone: [facility] 01-06-2022 14:59-0400 Diastolic blood pressure 82 mm[Hg] Dasia Zach MEDICAL RECORD CODER.BEATER ROOM SUPERVISOR Work Phone: [facility] 01-06-2022 14:59-0400 Heart rate 104 /min Dasia Zach MEDICAL RECORD CODER.BEATER ROOM SUPERVISOR Work Phone: [facility] 01-06-2022 14:59-0400 Systolic blood pressure 113 mm[Hg] Dasia Zach MEDICAL RECORD CODER.BEATER ROOM SUPERVISOR Work Phone: [facility] Encounters Encounter Date Encounter Type Care Provider Facility Start: 04-04-2025 [facility] Facility :[facility] Start: 03-02-2025 End: 03-02-2025 ambulatory SELF Facility:[id number] Start: 03-02-2025 End: 03-02-2025 Office outpatient visit 15 minutes Nimisha Sorto APRN.[facility] Work Phone: [facility] Comment on above: Irritation of left e ye (Primary Dx) Start: 04-14-2024 End: 04-14-2024 ambulatory [facility] Facility:[facility] Start: 04-02-2024 End: 04-02-2024 ambulatory [facility] Facility:[id number] Start: 04-02-2024 End: 04-02-2024 Patient encounter procedure Zaida Weeks APRN.BEATER ROOM SUPERVISOR Work Phone: [facility] Comment on above: Sore throat (Primary Dx); Bacterial pharyngitis; Thrush Start: 10-02-2022 End: 10-03-2022 ambulatory [facility] Facility:B Start: 10-02-2022 End: 10-02-2022 Patient encounter procedure EDWINA BARBA [facility] Start: 01-28-2022 Refill Dasia Roblero APRN.BEATER ROOM SUPERVISOR Work Phone: [facility] Comment on above: Refill Request Start: 01-06-2022 End: 01-06-2022 Patient encounter procedure Dasia Roblero APRN.BEATER ROOM SUPERVISOR Work Phone: [facility] Comment on above: Essential hypertensi on (Primary Dx); Acute pain of left shoulder; Obesity, Class I, BMI 30-34.9; Screening for colon cancer Start: 12-30-2021 Telephone encounter Cheyenne Espitia MD Work Phone: [facility] Comment on above: Appointment Start: 12-28-2021 Telephone encounter Cheyenne Espitia MD Work Phone: [facility] Comment on above: Patient Update Start: 10-29-2020 End: 10-29-2020 Subsequent hospital visit by physician Xr [facility] Work Phone: Radiology Comment on above: Acute pain of right shoulder [M25.511] Start: 06-14-2019 End: 06-14-2019 Subsequent hospital visit by physician Katherine Mcdaniels Work Phone: [facility] Start: 06-12-2019 End: 06-12-2019 Subsequent hospital visit by physician Katherine Mcdaniels Work Phone: [facility] Start: 06-07-2019 End: 06-07-2019 Subsequent hospital visit by physician Katherine Mcdaniels MD Work Phone: [facility] Start: 06-05-2019 End: 06-05-2019 Subsequent hospital visit by physician Katherine Mcdaniels Work Phone: [facility] Start: 05-31-2019 End: 05-31-2019 Subsequent hospital visit by physician Katherine Mcdaniels Work Phone: [facility] Start: 04-12-2019 End: 04-12-2019 Subsequent hospital visit by physician Katherine Mcdaniels Work Phone: [facility] Comment on above: Leg swelling Procedures Date Procedure Procedure Detail Performing Clinician Start: 04-02-2024 End: 04-02-2024 Culture fngi mold/yeast prsmptv oth xcpt blood Zaida Shevchuk MEDICAL RECORD CODER.BEATER ROOM SUPERVISOR Work Phone: Start: 01-06-2022 Adult depression scr eening assessment Dasia Roblero MEDICAL RECORD CODER.BEATER ROOM SUPERVISOR Work Phone: Start: 01-03-2021 Lipid 1996 panel - S ann or Plasma Zaida Shevchuk MEDICAL RECORD CODER.BEATER ROOM SUPERVISOR Work Phone: Start: 10-29-2020 Radex shoulder compl ete minimum 2 views Rik Kelsey MD Work Phone: Start: 04-12-2019 Dup-scan xtr veins complete bilateral study Katherine Mcdaniels Work Phone: Start: 01-13-2019 Laminectomy and discectomy EDWINA BARBA DO Comment on above: [facility] Start: 12-26-2018 Adult depression scr eening assessment Cheyenne Espitia MD Work Phone: Start: 08-15-1977 Open fracture of low er leg (disorder) EDWINA BARBA DO Plan of Treatment Date Care Activity Detail Author Start: 10-14-2032 Urine microalbumin profile DTaP,Tdap,Td Vaccine (3 - Td or Tdap) [facility] Start: 12-25-2030 Urine microalbumin profile DTAP,TDAP,TD (2 - Td or Tdap) [facility] Start: 01-03-2026 Lipid panel Lipid Screening [facility] Start: 01-03-2026 LIPID SCREEN LIPID SCREEN [facility] Start: 04-15-2025 Influenza vaccination Influenza Vacc ine (#1) [facility] Start: 01-06-2025 DIABETES SCREEN DIABETES SCREEN [facility] Start: 01-06-2025 Diabetes Screening Diabetes Screenin g [facility] Start: 04-15-2024 Covid-19 Vaccine ( season) Covid-19 Vaccine ( season) [facility] Start: 04-15-2024 Influenza vaccination Influenza Vacc ine (#1) [facility] Start: 01-04-2024 DIABETES SCREEN DIABETES SCREEN [facility] Start: 04-15-2023 Covid-19 Vaccine ( season) Covid-19 Vaccine ( season) [facility] Start: 01-06-2023 Adult depression screening assessment DEPRESSION SCREENING [facility] Start: 01-06-2023 ANNUAL PCP TEAM HEALTH PLAN ADVISOR GILLIAN DISEASE VISIT ANNUAL PCP TEAM CHRONIC DISEASE VISIT [facility] Start: 01-06-2023 BP CONTROLLED (<130/80) BP CONTROLLE D (<130/80) [facility] Start: 01-06-2023 COVID-19 VACCINE (#1) COVID-19 VACCI NE (#1) [facility] Comment on above: Postponed from 10/19 (Declined at this time) Start: 01-06-2023 SHINGRIX VACCINE (1 of 2) SHINGRIX VACCINE (1 of 2) [facility] Comment on above: Postponed from 10/19 (Declined at this time) Start: 04-15-2022 Influenza vaccination INFLUENZ A (Season Ended) [facility] Start: 12-25-2021 ANNUAL PCP TEAM HEALTH PLAN ADVISOR GILLIAN DISEASE VISIT ANNUAL PCP TEAM CHRONIC DISEASE VISIT [facility] Start: 2020 Pneumococcal Vaccine : 50+ (1 of 1 - PCV) Pneumococcal Vaccine: 50+ (1 of 1 - PCV) [facility] Start: 2020 SHINGRIX VACCINE (1 of 2) SHINGRIX VACCINE (1 of 2) [facility] Start: 02-02-2020 Creatinine monitoring Creatinine mon [place], [place] Start: 02-02-2020 Potassium monitoring Potassium monit [place], [place] Start: 12-27-2019 Adult depression screening assessment DEPRESSION SCREENING [facility] Start: 09-18-2019 End: 09-18-2019 Office Visit 09/18/2019 Office Visit Orthopedic Surgery Katherine Mcdaniels MD [address] [facility] [address] [place] [address] [phone] [facility] [place] Start: 07-03-2019 End: 07-03-2019 Office Visit 07/03/2019 Office Visit Orthopedic Surgery Katherine Mcdaniels MD [address] [facility] [address] [place] [address] [facility] [place] Start: 06-14-2019 End: 06-14-2019 Office Visit 06/14/2019 Office Visit Orthopedic Surgery Katherine Mcdaniels MD [address] [facility] [address] [place] [address] [facility] [place] Start: 05-18-2019 End: 05-18-2019 Office Visit 05/18/2019 Office Visit Orthopedic Surgery Katherine Mcdaniels MD 1 [facility] [address] [place] [address] [facility] [place] Start: 04-15-2019 Influenza vaccination Flu vaccine (# 1) [place], [place] Start: 10-20-2015 COLOGUARD (FIT-DNA) COLOGUARD (FIT-D NA) [facility] Start: 10-20-2015 Colonoscopy COLONOSCOPY [facility] Start: 10-20-2015 COLORECTAL CANCER SCREENING COLORECTAL CANCER SCREENING [facility] Start: 10-20-[address] COLONOGRAPHY [facility] Start: 10-20-2015 FECAL OCCULT BLOOD FECAL OCCULT BLOO D [facility] Start: 10-20-2015 Screening for malign ant neoplasm of colon [facility] Start: 10-20-2015 SIGMOIDOSCOPY SIGMOIDOSCOPY [facility] Start: 2010 Lipid screen Lipid screen [place], [place] Start: 1989 DTaP/Tdap/Td vaccine (1 - Tdap) DTaP/Tdap/Td vaccine (1 - Tdap) [place], [place] Start: 1989 Hepatitis B Vaccine (1 of 3 - 19+ 3-dose series) Hepatitis B Vaccine (1 of 3 - 19+ 3-dose series) [facility] Start: 1988 Anxiety Screening Anxiety Screening [facility] Start: 1988 BP CONTROLLED (<130/80) BP CONTROLLE D (<130/80) [facility] Start: 1988 Depression Screening Depression Scre ening [facility] Start: 1985 HIV screen HIV screen [place], [place] Start: 10-20-1975 COVID-19 VACCINE (#1) COVID-19 VACCI NE (#1) [facility] Basic metabolic 2000 panel - Serum or Plasma BASIC METABOLIC PNL Lab Today Essential hypertension Ordered: 01/06/2022 [facility] Work Phone: Comment on above: Ordered: 01/06/2022 Fungus identified in Unspecified specimen by Culture YEAST SCREEN Microbiology Routine Sore throat Thrush 04/02/2024 7:10 PM EDT [facility] Work Phone: OCCULT BLD EXAM-DIAG OCCULT BLD EXAM-DIAG Microbiology Routine Screening for colon cancer Ordered: 01/06/2022 [facility] Work Phone: Comment on above: Ordered: 01/06/2022 XR SHOULDER GENERAL 3V OR MORE AP/TRUE AP/OTHER LEFT XR SHOULDER GENERAL 3V OR MORE AP/TRUE AP/OTHER LEFT Radiology Routine Acute pain of left shoulder Ordered: 01/06/2022 [facility] Work Phone: Comment on above: Ordered: 01/06/2022 Monetta Luly chaudhary Immunizations Immunization Date Immunization Notes Care Provider Tal waggoner 12-25-2020 tetanus toxoid, redu ashley diphtheria toxoid, and acellular pertussis vaccine, adsorbed Cheyenne Espitia MD Work Phone: [facility] Payers Date Payer Category Payer Private Health Insurance [id number] 2024 Self-pay 2019 Private Health Insurance [employer]ET[employer] A ETNA CHOICE POS II [id number] 2019-Present [phone] [address] [place] [address] POS [id number] 2019 Private Health Insurance [id number] 2019 Private Health Insurance [id number] 2018 Private Health Insurance [employer] A ETNA xxxxxxxxxx 2018-Present [phone] [address] [place] [address] xxxxxxxxxx [id number] 1970 Unknown [id number] Unknown [id number] Unknown [id number] Social History Date Type Detail Facility Start: 12-26-2018 End: 03-02-2019 Tobacco smoking status NHIS Former smoker [facility] End: 09-15-2008 History of tobacco use Cigarette Smoker [place] Start: 03-02-2019 End: 09-12-2022 Cigarettes smoked current (pack per day) [facility] Start: 03-02-2019 End: 09-12-2022 Alcohol intake Yes [facility] Start: 01-03-2019 Tobacco Comment quit 10 years ago [facility] Start: 02-01-2019 Alcohol Comment [facility]assionally [facility] Start: 1970 Sex Assigned At Not on file [facility] End: 09-15-2008 History of tobacco use Current smoker [facility] Start: 12-26-2018 Tobacco use and exposure Smokeless tobacco non-user [facility] Start: 12-25-2020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
[2025-04-06 11:02] LABS: Creatinine, Urine (random) 237.00 mg/dL (39.00-259.00)
[2025-04-06 11:03] LABS: Microalbumin,Random Urine 20.2 mg/L (<20 mg/L)
[2025-04-06 11:12] LABS: AST(SGOT) 28 U/L (<=37); Alanine Aminotransfer ALT/SGPT 21 U/L (<=46); Albumin, Serum 4.1 g/dL (3.5-5.0); Alkaline Phosphatase 43 U/L (40-129); Anion Gap 14 (5-15); BUN 12 mg/dL (4-19); BUN/Creat Ratio 11.5 RATIO (10-20); Calcium,Total 9.2 mg/dL (7.6-11.0); Carbon Dioxide 26.2 mmol/L (21.0-32.0); Chloride 101 mmol/L (98-108); Cholesterol 206 mg/dL (<=200); Globulin 3.4 g/dL (2.2-4.2); Glucose 126 mg/dL (70-99); Low Density Lipoprotein Calc. 136 mg/dL; Potassium 3.0 mmol/L (3.3-5.1); Triglycerides 97 mg/dL; Very Low Density Lipoprotein 19 mg/dL (5-40); cholesterol:hdl ratio screen 4.09
== END | disposition home or self-care (01) ==
LOC: LAB.FUTURE 10:01 → LAB 10:02
PROVIDERS: PCP Preventive Medicine Occupational Medicine; Referring Provider Nurse Practitioner Family; Visit Provider Nurse Practitioner Family
DX: I10 Essential (primary) hypertension (principal); E87.6 Hypokalemia; E78.2 Mixed hyperlipidemia; Z12.5 Encounter for screening for malignant neoplasm of prostate
CPT/HCPCS: 36415; 80053; 80061; 82043; 82570

== ENCOUNTER → 2025-06-22 | Outpatient (CLI) | payer OTHER, SELFPAY ==
[2025-06-22 10:05] LABS: PSA,Total - Annual Screen 2.69 ng/mL (0.02-4.00)
== END | disposition home or self-care (01) ==
LOC: LAB 08:42
PROVIDERS: PCP Preventive Medicine Occupational Medicine; Referring Provider Nurse Practitioner Family; Visit Provider Nurse Practitioner Family
DX: Z12.5 Encounter for screening for malignant neoplasm of prostate (principal)
CPT/HCPCS: 36415; 84153; G0103

== ENCOUNTER → 2025-07-27 | Outpatient (CLI) | payer OTHER, SELFPAY ==
--- OUTSIDE RECORDS SUMMARY | 2025-07-27 09:39 | XMS RPT_ITS | CCD ---
Author Organization [facility] Care Team Providers Care Waste Reduction Coordinator Name Role Phone Cheyenne Espitia Primary Care Provider [phone] EDWINA BARBA DO Primary Care Physician EDWINA BARBA DO Attending Unavailable EDWINA BARBA DO Primary Care Unavailable Edwina Barba DO Primary Care Provider Cheyenne Espitia MD Primary Care Provider EDWINA BARBA Primary Care Unavailable ZAIDA WEEKS Attending Unavailable SELF Referring Unavailable EDWINA BARBA Primary Care Unavailable NIMISHA SORTO Attending Unavailable Dr. Edwina Barba DO Primary Care Provider BRIANNA TRANSITIONAL STUDIES INSTRUCTOR-C, SUNNY Attending Provider BRIANNA TRANSITIONAL STUDIES INSTRUCTOR-C, SUNNY Referring Provider BRIANNA, SUNNY Attending Unavailable Edwina Barba Primary Care Unavailable BRIANNA, SUNNY Referring Unavailable Edwina Barba Primary Care Unavailable BRIANNA, SUNNY Referring Unavailable BRIANNA, SUNNY Attending Unavailable Allergies Allergy Classification Reported Allergen(s) Allergy Type Date of Onset Reaction(s) Facility (7 sources) Penicillins; Translations: [PENICILLINS] Propensity to adverse reactions to drug 9 [place], [place] (4 sources) Penicillins Drug Allergy 9 [facility] (1 source) Penicillin; Translations: [penicillin] Drug Allergy Eruption of skin (disorder) [facility] (2 sources) Penicillins Drug Allergy 9 [facility] (1 source) Penicillins Drug Allergy 9 [facility] Medications Current Medications Medication Drug Class(es) Dates [...] TID, # 15 gram(s), 1 Refill(s), Pharmacy: [facility]/pharmacy #[id number], Ointment, 183, cm, 09/27/22 13:26:00 EST, Height, [...] Problem Classification Problem Date Documented Date Episodic/Chronic Essential hypertension (11 sources) Essential hypertension; Translations: [Essential (primary) hypertension] Onset: 02-01-2019 02-01-2019 Chronic Hemorrhoids (1 source) Hemorrhoids 09-27-2022 Episodic Other [...] screening for malignant neoplasm of colon] Onset: 06-22-2025 Episodic Other upper respiratory disease (1 source) [...] Test Name Value Interpretation Reference Range Facility PSA,Total - Annual Screenon 06-22-2025 PSA,TOT SCREEN 2.69 ng/mL Normal 0.02-4.00 [facility] Comment on above: Result Comment: This test was performed using the [employer] tPSA method. Measured values of a patient??sample can vary depending on the testing procedure used. PSA values determined on patient samples by different testing procedures cannot be used interchangeably. If there is a change in PSA assays while monitoring therapy, sequential testing should be performed to confirm baseline values. Performed By: #### L 501.9910 #### [facility] [address] [place], [address] Anion gap in Serum or Plasma Ordered By: SUNNY REED on 04-06-2025 Anion gap [Moles/Vol] 14 mmol/L 5-15 [facility] BUN/creatinine ratioOrdered By: SUNNY REED on 04-06-2025 Urea nitrogen/Creatinine [Mass ratio] 11.5 mg/mg 10- [facility] Bilirubin, totalOrdered By: SUNNY REED on 04-06-2025 Bilirubin [Mass/Vol] 0.87 mg/dL 0.00-1.30 [facility] Calculated very low density lipoprotein (VLDL) cholesterol measurementOrdered By: SUNNY REED on 04-06-2025 Calculated very low density lipoprotein (VLDL) cholesterol measurement 19 mg/dL -40 [facility] Carbon dioxide, total [Moles /volume] in Central venous bloodOrdered By: SUNNY REED on 04-06-2025 CO2 [Moles/Vol] 26.2 mmol/L 21.0-32.0 [facility] Chloride assayOrdered By: MILAGRO REED on 04-06-2025 Chloride [Moles/Vol] 101 mmol/L 98-108 [facility] Comprehensive Metabolic Prof ilon 04-06-2025 Albumin [Mass/Vol] 4.1 g/dL Normal 3.5-5.0 [facility] Comment on above: Order Comment: PSA N OT ORDERABLE TILL AFTER 04/14/25 Performed By: #### L 500.4050, L500.4100, L502.0250 #### [facility] [address] [place], [address] Albumin/Globulin [Mass ratio] 1.2 {ratio} Normal 0.9-2.4 [facility] Comment on above: Order Comment: PSA N OT ORDERABLE TILL AFTER 04/14/25 Performed By: #### L 500.4050, L500.4100, L502.0250 #### [facility] [address] [place], [address] ALK PHOS 43 U/L Normal 40-129 [facility] Comment on above: Order Comment: PSA N OT ORDERABLE TILL AFTER 04/14/25 Performed By: #### L 500.4050, L500.4100, L502.0250 #### [facility] [address] [place], [address] ALT [Catalytic activity/Vol] 21 U/L Normal <=46 [facility] Comment on above: Order Comment: PSA N OT ORDERABLE TILL AFTER 04/14/25 Performed By: #### L 500.4050, L500.4100, L502.0250 #### [facility] [address] [place], [address] AST [Catalytic activity/Vol] 28 U/L Normal <=37 [facility] Comment on above: Order Comment: PSA N OT ORDERABLE TILL AFTER 04/14/25 Performed By: #### L 500.4050, L500.4100, L502.0250 #### [facility] [address] [place], [address] Bilirubin [Mass/Vol] 0.87 mg/dL Normal 0.00-1.30 [facility] Comment on above: Order Comment: PSA N OT ORDERABLE TILL AFTER 04/14/25 Performed By: #### L 500.4050, L500.4100, L502.0250 #### [facility] [address] [place], [address] BUN/CRE 11.5 RATIO Normal 10-20 [facility] Comment on above: Order Comment: PSA N OT ORDERABLE TILL AFTER 04/14/25 Performed By: #### L 500.4050, L500.4100, L502.0250 #### [facility] [address] [place], [address] Calcium [Mass/Vol] 9.2 mg/dL Normal 7.6-11.0 [facility] Comment on above: Order Comment: PSA N OT ORDERABLE TILL AFTER 04/14/25 Performed By: #### L 500.4050, L500.4100, L502.0250 #### [facility] [address] [place], [address] Chloride [Moles/Vol] 101 mmol/L Normal 98-108 [facility] Comment on above: Order Comment: PSA N OT ORDERABLE TILL AFTER 04/14/25 Performed By: #### L 500.4050, L500.4100, L502.0250 #### [facility] [address] [place], [address] CO2 [Moles/Vol] 26.2 mmol/L Normal 21.0-32.0 [facility] Comment on above: Order Comment: PSA N OT ORDERABLE TILL AFTER 04/14/25 Performed By: #### L 500.4050, L500.4100, L502.0250 #### [facility] [address] [place], [address] Creatinine [Mass/Vol] 1.06 mg/dL Normal 0.70-1.20 [facility] Comment on above: Order Comment: PSA N OT ORDERABLE TILL AFTER 04/14/25 Performed By: #### L 500.4050, L500.4100, L502.0250 #### [facility] [address] [place], [address] GAP 14 Normal 5-15 [facility] Comment on above: Order Comment: PSA N OT ORDERABLE TILL AFTER 04/14/25 Performed By: #### L 500.4050, L500.4100, L502.0250 #### [facility] [address] [place], [address] GFR/1.73 sq M.predicted among non-blacks MDRD (S/P/Bld) [Vol rate/Area] 83 mL/min/{1.73_m2} Normal >60 [facility] Comment on above: Order Comment: PSA N OT ORDERABLE TILL AFTER 04/14/25 Result Comment: mL/m in/1.73m2 CKD-EPI Creatinine Equation (2020) Performed By: #### L 500.4050, L500.4100, L502.0250 #### [facility] [address] [place], [address] Globulin (S) [Mass/Vol] 3.4 g/dL Normal 2.2-4.2 [facility] Comment on above: Order Comment: PSA N OT ORDERABLE TILL AFTER 04/14/25 Performed By: #### L 500.4050, L500.4100, L502.0250 #### [facility] [address] [place], [address] Glucose [Mass/Vol] 126 mg/dL High 70-99 [facility] Comment on above: Order Comment: PSA N OT ORDERABLE TILL AFTER 04/14/25 Performed By: #### L 500.4050, L500.4100, L502.0250 #### [facility] [address] [place], [address] Potassium [Moles/Vol] 3.0 mmol/L Low 3.3-5.1 [facility] Comment on above: Order Comment: PSA N OT ORDERABLE TILL AFTER 04/14/25 Performed By: #### L 500.4050, L500.4100, L502.0250 #### [facility] [address] [place], [address] Sodium [Moles/Vol] 141 mmol/L Normal 133-145 [facility] Comment on above: Order Comment: PSA N OT ORDERABLE TILL AFTER 04/14/25 Performed By: #### L 500.4050, L500.4100, L502.0250 #### [facility] [address] [place], [address] T PROT 7.5 g/dL Normal 5.9-8.4 [facility] Comment on above: Order Comment: PSA N OT ORDERABLE TILL AFTER 04/14/25 Performed By: #### L 500.4050, L500.4100, L502.0250 #### [facility] [address] [place], [address] Urea nitrogen [Mass/Vol] 12 mg/dL Normal 4-19 [facility] Comment on above: Order Comment: PSA N OT ORDERABLE TILL AFTER 04/14/25 Performed By: #### L 500.4050, L500.4100, L502.0250 #### [facility] [address] [place], [address] Glomerular filtration rate ( GFR) estimation/1.73 sq m using serum, plasma, or whole bOrdered By: SUNNY REED on 04-06-2025 GFR/1.73 sq M.predicted among non-blacks MDRD (S/P/Bld) [Vol rate/Area] 83 mL/min/{1.73_m2} >60 [facility] Comment on above: mL/min/1.73m2 CKD-EP I Creatinine Equation (2020) LDL calc ser/plasOrdered By: SUNNY REED on 04-06-2025 Cholesterol in LDL [Mass/Vol] 136 mg/dL [facility] Comment on above: Ujnektluie=020-648 m g/dL & Higher Rgko=973 mg/dL or greaterFriedwald Equation for LDL-C Laboratory - Chemistry and C hemistry - challengeOrdered By: SUNNY REED on 04-06-2025 AST [Catalytic activity/Vol] 28 U/L <38 [facility] Lipid Profileon 04-06-2025 CHOL:HDL 4.09 Normal [facility] Comment on above: Order Comment: PSA N OT ORDERABLE TILL AFTER 04/14/25 Performed By: #### L 500.4050, L500.4100, L502.0250 #### [facility] [address] [place], [address] Cholesterol [Mass/Vol] 206 mg/dL High <=200 [facility] Comment on above: Order Comment: PSA N OT ORDERABLE TILL AFTER 04/14/25 Result Comment: Chol esterol level, Desirable <200 mg/dL Borderline high cholesterol 200-239 mg/dL High cholesterol >=240 mg/dL Recommendations of the NCEP Adult Treatment Panel for the following risk-cutoff thresholds for the [place] population. Performed By: #### L 500.4050, L500.4100, L502.0250 #### [facility] [address] [place], [address] Cholesterol in HDL [Mass/Vol] 50 mg/dL Normal [facility] Comment on above: Order Comment: PSA N OT ORDERABLE TILL AFTER 04/14/25 Result Comment: Jennifer onal Cholesterol Education Program (NCEP) guidelines: <40 mg/dL: Low HDL-cholesterol (major risk factor for CHD) >= 60 mg/dL: High HDL-cholesterol (negative risk factor for CHD) HDL-cholesterol is affected by a number of factors, e.g. smoking, exercise, hormones, sex and age. Performed By: #### L 500.4050, L500.4100, L502.0250 #### [facility] [address] [place], [address] Cholesterol in LDL [Mass/Vol] 136 mg/dL Normal [facility] Comment on above: Order Comment: PSA N OT ORDERABLE TILL AFTER 04/14/25 Result Comment: Bord csmari=684-147 mg/dL Higher Jkek=203 mg/dL or greater Friedwald Equation for LDL-C Performed By: #### L 500.4050, L500.4100, L502.0250 #### [facility] [address] [place], [address] Cholesterol in VLDL [Mass/Vol] 19 mg/dL Normal 5-40 [facility] Comment on above: Order Comment: PSA N OT ORDERABLE TILL AFTER 04/14/25 Performed By: #### L 500.4050, L500.4100, L502.0250 #### [facility] [address] [place], [address] Triglyceride [Mass/Vol] 97 mg/dL Normal [facility] Comment on above: Order Comment: PSA N OT ORDERABLE TILL AFTER 04/14/25 Result Comment: The drugs N-Acetylcysteine and Metamizole may falsely depress this assay. Normal range: <150 mg/dL Borderline High: 150-199 mg/dL High: 200-499 mg/dL Very High: >500 mg/dL Performed By: #### L 500.4050, L500.4100, L502.0250 #### [facility] [address] [place], [address] Microalb:Creat Ratio,Random URon 04-06-2025 MALB:CREAT 8.5 mg/g CRE Normal <30 mg/g CRE [facility] Comment on above: Performed By: #### L 500.4050, L500.4100, L502.0250 #### [facility] [address] [place], [address] MICROALBUMIN,UR 20.2 mg/L Normal <20 mg/L [facility] Comment on above: Performed By: #### L 500.4050, L500.4100, L502.0250 #### [facility] [address] [place], [address] Potassium measurement (mass/ volume)Ordered By: SUNNY REED on 04-06-2025 Potassium (Unsp spec) [Mass/Vol] 3.0 mmol/L Low 3.3-5.1 [facility] Random urine creatinine gerson urement (mass/volume)Ordered By: SUNNY REED on 04-06-2025 Creatinine Unsp time (U) [Mass/Vol] 237.00 mg/dL 39.00-259.00 [facility] Screening total cholesterol/ high density lipoprotein (HDL) cholesterol ratioOrdered By: SUNNY REED on 04-06-2025 Cholesterol.total/Cho lesterol in HDL [Mass ratio] 4.09 {ratio} [facility] Serum creatinine measurement (mass/volume)Ordered By: SUNNY REED on 04-06-2025 Creatinine [Mass/Vol] 1.06 mg/dL 0.70-1.20 [facility] Serum globulin measurementOr dered By: SUNNY REED on 04-06-2025 Globulin (S) [Mass/Vol] 3.4 g/dL 2.2-4.2 [facility] Serum glucose measurement (m ass/volume)Ordered By: SUNNY REED on 04-06-2025 Glucose [Mass/Vol] 126 mg/dL High 70-99 [facility] Serum or plasma alanine monroe otransferase (ALT) measurementOrdered By: SUNNY REED on 04-06-2025 ALT [Catalytic activity/Vol] 21 U/L <47 [facility] Serum or plasma albumin gerson urement (mass/volume)Ordered By: SUNNY REED on 04-06-2025 Albumin [Mass/Vol] 4.1 g/dL 3.5-5.0 [facility] Serum or plasma albumin/glob ulin mass ratioOrdered By: SUNNY REED on 04-06-2025 Albumin/Globulin [Mass ratio] 1.2 {ratio} 0.9-2.4 [facility] Serum or plasma alkaline kelsie sphatase measurementOrdered By: SUNNY REED on 04-06-2025 ALP [Catalytic activity/Vol] 43 U/L 40-129 [facility] Serum or plasma calcium gerson urement (mass/volume)Ordered By: SUNNY REED on 04-06-2025 Calcium [Mass/Vol] 9.2 mg/dL 7.6-11.0 [facility] Serum or plasma cholesterol in HDL measurement (mass/volume)Ordered By: SUNNY REED on 04-06-2025 Cholesterol in HDL [Mass/Vol] 50 mg/dL >40 [facility] Comment on above: National Cholesterol Education Program (NCEP) guidelines:<40 mg/dL: Low HDL-cholesterol (major risk factor for CHD)>= 60 mg/dL: High HDL-cholesterol (negative risk factor for CHD)HDL-cholesterol is affected by a number of factors, e.g. smoking, exercise, hormones, sex and age. Serum or plasma cholesterol measurement (mass/volume)Ordered By: SUNNY REED on 04-06-2025 Cholesterol [Mass/Vol] 206 mg/dL High <201 [facility] Comment on above: Cholesterol level, D esirable <200 mg/dLBorderline high cholesterol 200-239 mg/dLHigh cholesterol >=240 mg/dLRecommendations of the NCEP Adult Treatment Panel for the following risk-cutoff thresholds for the [place] population. Serum or plasma urea nitroge n measurement (mass/volume)Ordered By: SUNNY REED on 04-06-2025 Urea nitrogen [Mass/Vol] 12 mg/dL 4-19 [facility] Sodium levelOrdered By: ABRAHAM REED on 04-06-2025 Sodium [Moles/Vol] 141 mmol/L 133-145 [facility] Total proteinOrdered By: CHIARA REED on 04-06-2025 Protein [Mass/Vol] 7.5 g/dL 5.9-8.4 [facility] Triglycerides measurementOrd ered By: SUNNY REED on 04-06-2025 Triglyceride [Mass/Vol] 97 mg/dL <199 [facility] Comment on above: The drugs N-Acetylcy steine and Metamizole may falsely depress this assay. Normal range: <150 mg/dLBorderline High: 150-199 mg/dLHigh: 200-499 mg/dLVery High: >500 mg/dL Urine albumin measurement wi detection limit of 20 mg/L or less (mass/volume)Ordered By: SUNNY REED on 04-06-2025 Albumin DL <= 20 mg/L (U) [Mass/Vol] 20.2 mg/L <20 mg/L [facility] CNOVon 03-02-2025 CNOV Office Visit ([facility] ) RAUL FARAH SR ([id number]) 1970 M Date Time Provider Department 03/02/25 2:20 PM NIMISHA SORTO During your visit today, we recorded the following information about you: Temperature Pulse Respiration Blood pressure 97.6 degrees 88/minute 18/minute 138/93 Weight 104.3 kg Nimisha Sorto APRN.WASTEWATER SUPERVISOR 03/02/2025 3:25 PM Signed - Use lubricating (artificial tears) eye drops as directed and see if the redness and discomfort improve. - If needed, try an nsec-tas-gezzadk allergy eye drop (Pataday) to relieve irritation. [...] stain examination and possible antibiotic treatment. Nimisha Sorto APRN.HONORIO 03/02/2025 4:31 PM Signed [facility] Tico Carter Jason Farah is a 54 year [...] drops without relief. 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 - [...] agrees with the plan. and Recording using ambient [employer] software for draft documentation of the visit was discussed with the patient/authorized canvas products sales representative; all questions welcomed and answered. Patient/authorized canvas products sales representative agreed to proceed MDM Procedures Referring Provider: SELF [200] Allergies As of Date: 03/02/2025 Noted Allergy Reaction PENICILLINS 12/26/2018 4 - Hives Date Reviewed: 03/02/2025 Reviewed by: Nimisha Sorto, RIP.WASTEWATER SUPERVISOR - Fully Assessed Reason for Visit: Eye Problem [43] Cmt: LT eye irritation/ redness, Pt states he feels like something is in his eye x 2-3 days Primary Visit Diagnosis:Irritation of left eye [H57.89] Prescriptions as of 03/02/2025 - hydroCHLOROthiazide (HYDRODIURIL (more content not included)... Normal [facility] CNOVon 04-02-2024 CNOV Office Visit ([facility] ) RAUL FARAH SR ([id number]) 1970 M Date Time Provider Department 04/02/24 6:20 PM ZAIDA WEEKS [facility] During your visit today, we recorded the following information about you: Temperature Pulse Respiration Blood pressure 98.1 degrees 106/minute 16/minute 122/82 Zaida Weeks, MOBILE HOME SERVICER.WASTEWATER SUPERVISOR 04/02/2024 7:17 PM Addendum -Please see your [...] have other concerns or questions. Zaida Weeks APRN.HONORIO 04/13/2024 8:58 AM Signed Raul Gomez sr [...] spouse. No (more content not included)... Normal [facility] Fungus Spec Culton 4 Fungus identified Cx Nom (Unsp spec) CULTURE, FUNGAL: No Fungus isolated after 10 days Normal [facility] Comment on above: Performed By: #### 5 80-1 #### [facility] CLIA [id number] [address] [place] [address] [place] RAPID GROUP A STREP RFLX TO PCROrdered By: Rajesh De Santiago on 04-02-2024 Interpretation and review of laboratory results Abnormal [facility] S. pyogenes Ag Ql (Throat) Positive Abnormal Negative Group A Strep Screen [facility] RAPID GROUP A STREP RFLX TO PCRon 04-02-2024 S. pyogenes Ag Ql (Throat) Positive Abnormal Negative Group A Strep Screen [facility] Comment on above: Order Comment: Speci men Type: SWAB Ordering Facility: [facility] Address: [address] [place] [address] Performed By: #### S TAPCR #### [facility] CLIA [id number] [address] [place] [address] [facility] .Auto Diffon 10-02-2022 Basophil, Absolute 0.1 10 3/mcL Normal 0.0-0.2 [facility] ([place]) Comment on above: Performed By: #### G FR, CBC, ANEU, CMP, PSA, LIPID, ADIFF #### [address] [address] Basophils/100 WBC (Bld) 1.2 % Normal 0.0-2.5 [facility] ([place]) Comment on above: Performed By: #### G FR, CBC, ANEU, CMP, PSA, LIPID, ADIFF #### [address] [address] Eosinophil, Absolute 0.3 10 3/mcL Normal 0.0-0.4 [facility] ([place]) Comment on above: Performed By: #### G FR, CBC, ANEU, CMP, PSA, LIPID, ADIFF #### [address] [address] Eosinophils/100 WBC (Bld) 4.9 % Normal 0.0-7.0 [facility] ([place]) Comment on above: Performed By: #### G FR, CBC, ANEU, CMP, PSA, LIPID, ADIFF #### [address] [address] Lymphocyte, Absolute 2.2 10 3/mcL Normal 0.8-3.9 [facility] ([place]) Comment on above: Performed By: #### G FR, CBC, ANEU, CMP, PSA, LIPID, ADIFF #### [address] [address] Lymphocytes/100 WBC (Bld) 37.6 % Normal 10.0-50.0 [facility] ([place]) Comment on above: Performed By: #### G FR, CBC, ANEU, CMP, PSA, LIPID, ADIFF #### [address] [address] Monocyte, Absolute 0.4 10 3/mcL Normal 0.2-1.0 [facility] ([place]) Comment on above: Performed By: #### G FR, CBC, ANEU, CMP, PSA, LIPID, ADIFF #### [address] [address] Monocytes/100 WBC (Bld) 7.0 % Normal 1.7-13.0 [facility] ([place]) Comment on above: Performed By: #### G FR, CBC, ANEU, CMP, PSA, LIPID, ADIFF #### [address] [address] Neutrophils/100 WBC (Bld) 49.3 % Normal 37.0-80.0 [facility] ([place]) Comment on above: Performed By: #### G FR, CBC, ANEU, CMP, PSA, LIPID, ADIFF #### [address] [address] .GFRon 10-02-2022 GFR 84 ml/min/1.73sqm Normal [facility] ([place]) Comment on above: Result Comment: GFR Population [...] CBC, ANEU, CMP, PSA, LIPID, ADIFF #### [address] [address] GFR Non- 69 ml/min/1.73sqm Normal [facility] ([place]) Comment on above: Result Comment: GFR Population [...] CBC, ANEU, CMP, PSA, LIPID, ADIFF #### [address] [address] .NEUABSon 10-02-2022 Neutrophil, Absolute 2.9 10 3/mcL Normal 2.9-6.2 [facility] ([place]) Comment on above: Performed By: #### G FR, CBC, ANEU, CMP, PSA, LIPID, ADIFF #### [place] [id number] CBCon 10-02-2022 Erythrocyte distribution width (RBC) [Ratio] 13.6 % Normal 11.5-14.5 [facility] ([place]) Comment on above: Performed By: #### G FR, CBC, ANEU, CMP, PSA, LIPID, ADIFF #### [place] [id number] Hematocrit (Bld) [Volume fraction] 42.5 % Normal 42.0-52.0 [facility] ([place]) Comment on above: Performed By: #### G FR, CBC, ANEU, CMP, PSA, LIPID, ADIFF #### [address] [address] Hgb 14.6 G/dL Normal 14.0-18.0 [facility] ([place]) Comment on above: Performed By: #### G FR, CBC, ANEU, CMP, PSA, LIPID, ADIFF #### [address] [address] MCH (RBC) [Entitic mass] 29.8 pg Normal 27.0-31.2 [facility] ([place]) Comment on above: Performed By: #### G FR, CBC, ANEU, CMP, PSA, LIPID, ADIFF #### [address] [address] MCHC 34.3 G/dL Normal 31.8-35.4 [facility] ([place]) Comment on above: Performed By: #### G FR, CBC, ANEU, CMP, PSA, LIPID, ADIFF #### [address] [address] MCV (RBC) [Entitic vol] 86.9 fL Normal 80.0-94.0 [facility] ([place]) Comment on above: Performed By: #### G FR, CBC, ANEU, CMP, PSA, LIPID, ADIFF #### [address] [address] Platelet 310 10 3/mcL Normal 130-400 [facility] ([place]) Comment on above: Performed By: #### G FR, CBC, ANEU, CMP, PSA, LIPID, ADIFF #### [address] [address] Platelet mean volume (Bld) [Entitic vol] 8.2 fL Normal 7.4-10.4 [facility] ([place]) Comment on above: Performed By: #### G FR, CBC, ANEU, CMP, PSA, LIPID, ADIFF #### [address] [address] RBC 4.89 10 6/mcL Normal 4.04-6.13 [facility] ([place]) Comment on above: Performed By: #### G FR, CBC, ANEU, CMP, PSA, LIPID, ADIFF #### [address] [address] WBC 6.0 10 3/mcL Normal 4.6-10.8 [facility] ([place]) Comment on above: Performed By: #### G FR, CBC, ANEU, CMP, PSA, LIPID, ADIFF #### [address] [address] CMPon 10-02-2022 Albumin Level 3.5 G/dL Normal 3.5-5.0 [facility] ([place]) Comment on above: Performed By: #### G FR, CBC, ANEU, CMP, PSA, LIPID, ADIFF #### [address] [address] Albumin/Globulin [Mass ratio] 0.9 {ratio} Low 1.1-2.5 [facility] ([place]) Comment on above: Performed By: #### G FR, CBC, ANEU, CMP, PSA, LIPID, ADIFF #### [address] [address] ALP [Catalytic activity/Vol] 44 U/L Normal 40-135 [facility] ([place]) Comment on above: Performed By: #### G FR, CBC, ANEU, CMP, PSA, LIPID, ADIFF #### [address] [address] ALT [Catalytic activity/Vol] 30 U/L Normal 16-63 [facility] ([place]) Comment on above: Performed By: #### G FR, CBC, ANEU, CMP, PSA, LIPID, ADIFF #### [address] [address] AST [Catalytic activity/Vol] 23 U/L Normal 10-40 [facility] ([place]) Comment on above: Performed By: #### G FR, CBC, ANEU, CMP, PSA, LIPID, ADIFF #### [address] [address] Bili Total 0.7 mg/dL Normal 0.2-1.0 [facility] ([place]) Comment on above: Result Comment: Use of this assay is not recommended for patients undergoing treatment with eltrombopag due to the potential for falsely elevated results. Performed By: #### G FR, CBC, ANEU, CMP, PSA, LIPID, ADIFF #### [address] [address] BUN/Creatinine Ratio 12 ratio Normal 7-27 [facility] ([place]) Comment on above: Performed By: #### G FR, CBC, ANEU, CMP, PSA, LIPID, ADIFF #### [place] [id number] Calcium [Mass/Vol] 8.7 mg/dL Normal 8.4-10.2 [facility] ([place]) Comment on above: Performed By: #### G FR, CBC, ANEU, CMP, PSA, LIPID, ADIFF #### [address] [address] Chloride [Moles/Vol] 103 mmol/L Normal 98-107 [facility] ([place]) Comment on above: Performed By: #### G FR, CBC, ANEU, CMP, PSA, LIPID, ADIFF #### [address] [address] CO2 [Moles/Vol] 32 mmol/L High 22-29 [facility] ([place]) Comment on above: Performed By: #### G FR, CBC, ANEU, CMP, PSA, LIPID, ADIFF #### [address] [address] Creatinine [Mass/Vol] 1.12 mg/dL Normal 0.70-1.30 [facility] ([place]) Comment on above: Performed By: #### G FR, CBC, ANEU, CMP, PSA, LIPID, ADIFF #### [address] [address] Electrolyte Balance 5.0 mEq/L Normal 4.0-15.0 [facility] ([place]) Comment on above: Performed By: #### G FR, CBC, ANEU, CMP, PSA, LIPID, ADIFF #### [address] [address] Globulin 3.7 G/dL Normal [facility] ([place]) Comment on above: Performed By: #### G FR, CBC, ANEU, CMP, PSA, LIPID, ADIFF #### [address] [address] Glucose [Mass/Vol] 99 mg/dL Normal 70-105 [facility] ([place]) Comment on above: Performed By: #### G FR, CBC, ANEU, CMP, PSA, LIPID, ADIFF #### [address] [address] Potassium [Moles/Vol] 3.7 mmol/L Normal 3.5-5.1 [facility] ([place]) Comment on above: Performed By: #### G FR, CBC, ANEU, CMP, PSA, LIPID, ADIFF #### [place] [address] [place], [place] [address] Sodium [Moles/Vol] 140 mmol/L Normal 136-145 [facility] ([place]) Comment on above: Performed By: #### G FR, CBC, ANEU, CMP, PSA, LIPID, ADIFF #### [place] [address] [place], [place] [address] Total Protein 7.2 G/dL Normal 6.4-8.2 [facility] ([place]) Comment on above: Performed By: #### G FR, CBC, ANEU, CMP, PSA, LIPID, ADIFF #### [place] [address] [place], [place] [address] Urea nitrogen [Mass/Vol] 13 mg/dL Normal 7-18 [facility] ([place]) Comment on above: Performed By: #### G FR, CBC, ANEU, CMP, PSA, LIPID, ADIFF #### [place] [address] [place], [place] [address] LABORATORYOrdered By: Minerva Chamorro on 10-02-2022 Albumin [...] 10-02-2022 Cholesterol [Mass/Vol] 242 mg/dL High 0-200 [facility] ([place]) Comment on above: Result Comment: Chol esterol Reference Interval: Less than 200 Desirable 200-239 Borderline high risk 240 and above High risk Performed By: #### G FR, CBC, ANEU, CMP, PSA, LIPID, ADIFF #### [address] [address] Cholesterol in HDL [Mass/Vol] 54 mg/dL Normal 40-60 [facility] ([place]) Comment on above: Performed By: #### G FR, CBC, ANEU, CMP, PSA, LIPID, ADIFF #### [address] [address] Cholesterol in LDL [Mass/Vol] 155 mg/dL High 0-130 [facility] ([place]) Comment on above: Performed By: #### G FR, CBC, ANEU, CMP, PSA, LIPID, ADIFF #### [address] [address] Triglyceride [Mass/Vol] 167 mg/dL High 0-150 [facility] ([place]) Comment on above: Result Comment: Trig lyceride Reference Interval: Less than 150 Normal 150-199 Borderline high risk 200-499 High risk 500 or higher Very high risk Performed By: #### G FR, CBC, ANEU, CMP, PSA, LIPID, ADIFF #### [address] [address] MALBRon 10-02-2022 U Creatinine 263.5 mg/dL High 39.0-259.0 [facility] ([place]) Comment on above: Performed By: #### M ALBR #### [address] [address] U Microalb 1260 mcg/dL Normal [facility] ([place]) Comment on above: Performed By: #### M ALBR #### [place] [address] [address] [address] [place], [place] [address] U Ratio Alb/Cre 5 mcg/mg Normal 0-30 [facility] ([place]) Comment on above: Performed By: #### M ALBR #### [place] [address] [address] [place], [place] [address] PSAon 10-02-2022 Prostate Specific Antigen 1.88 ng/mL Normal 0.00-4.00 [facility] ([place]) Comment on above: Performed By: #### G FR, CBC, ANEU, CMP, PSA, LIPID, ADIFF #### [place] [address] [address] [place], [place] [address] CNPMaria Luz 01-07-2022 BANG Telephone (FPWATERRELL) RAUL FARAH SR ([id number]) 1970 M Date Time Provider Department 01/07/22 [...] Date Reviewed: 01/06/2022 Reviewed by: Dasia Roblero APRN.WASTEWATER SUPERVISOR - Fully Assessed Reason for Visit: Results [95] Prescriptions as of 01/08/2022 - hydroCHLOROthiazide (HYDRODIURIL, ESIDRIX) 25 mg tablet Take 1 tablet by mouth once daily. - methylPREDNISolone (MEDROL, MARIA GUADALUPE,) 4 mg Dose-Pack Follow dosing instructions, take with food. 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/19 Essential hypertension [I10] 02/01/2019 Encounter Status:Closed by KAILEY PAK on 01/08/22 Normal [facility] Basic metabolic 2000 panelon 01-06-2022 Anion gap [Moles/Vol] 12 mmol/L Normal 9-18 [facility] Comment on above: Order Comment: Speci men Type: BLOOD SPECIMEN Ordering Facility: [facility] Address: [address] [place] [address] Performed By: #### 2 4321-2 #### [facility] CLIA [id number] [address] [place] [address] [place] Calcium [Mass/Vol] 9.8 mg/dL Normal 8.5-10.2 [facility] Comment on above: Order Comment: Speci men Type: BLOOD SPECIMEN Ordering Facility: [facility] Address: [address] [place] [address] Performed By: #### 2 4321-2 #### [facility] CLIA [id number] [address] [place] [address] [place] Chloride [Moles/Vol] 99 mmol/L Normal 97-105 [facility] Comment on above: Order Comment: Speci men Type: BLOOD SPECIMEN Ordering Facility: [facility] Address: [address] [place], [place] [id number] Performed By: #### 2 4321-2 #### [facility] CLIA [id number] [address] [place] [address] [place] CO2 [Moles/Vol] 27 mmol/L Normal 22-30 [facility] Comment on above: Order Comment: Speci men Type: BLOOD SPECIMEN Ordering Facility: [facility] Address: [address] [id number] Performed By: #### 2 4321-2 #### [facility] CLIA [id number] [address] [place] [address] [place] [facility] Creatinine [Mass/Vol] 1.05 mg/dL Normal 0.73-1.22 [facility] Comment on above: Order Comment: Speci men Type: BLOOD SPECIMEN Ordering Facility: [facility] Address: [address] [place], [place] [phone] Performed By: #### 2 4321-2 #### [facility] CLIA [id number] [address] [place] [address] [facility] ESTIMATED GLOMERULAR FILTRATION RATE 86 mL/min/1.73m??? Normal >=60 [facility] Comment on above: Order Comment: Speci men Type: BLOOD SPECIMEN Ordering Facility: [facility] Address: [address] [place] [address] Result Comment: Edelmira mated Glomerular Filtration Rate [...] GFR. Performed By: #### 2 4321-2 #### [facility] CLIA [id number] [address] [place] [address] [place] Glucose [Mass/Vol] 75 mg/dL Normal 74-99 [facility] Comment on above: Order Comment: Speci men Type: BLOOD SPECIMEN Ordering Facility: [facility] Address: [address] [place] [address] Result Comment: The [place] Diabetes Association (ADA) provides guidance for cutoff [...] Standards of Medical Care in Diabetes 2016, [place] Diabetes Association. Diabetes Care. 2016.39(Suppl 1). Performed By: #### 2 4321-2 #### [facility] CLIA [id number] [address] [place] [address] [place] Potassium [Moles/Vol] 3.6 mmol/L Low 3.7-5.1 [facility] Comment on above: Order Comment: Nanette cruz Type: BLOOD SPECIMEN Ordering Facility: [facility] Address: [address] [place] [address] Performed By: #### 2 4321-2 #### [facility] CLIA [id number] [address] [place] [address] [place] Sodium [Moles/Vol] 138 mmol/L Normal 136-144 [facility] Comment on above: Order Comment: Nanette cruz Type: BLOOD SPECIMEN Ordering Facility: [facility] Address: [address] [place] [address] Performed By: #### 2 4321-2 #### [facility] CLIA [id number] [address] [place] [address] [place] Urea nitrogen [Mass/Vol] 12 mg/dL Normal 9-24 [facility] Comment on above: Order Comment: Nanette cruz Type: BLOOD SPECIMEN Ordering Facility: [facility] Address: [address] [place] [address] Performed By: #### 2 4321-2 #### [facility] CLIA [id number] [address] [place] [address] [place] CNOVon 01-06-2022 CNOV Office Visit (WADS ) RAUL FARAH SR ([id number]) 1970 M Date Time Provider Department 01/06/22 3:00 PM DASIA ROBLERO During your visit today, we recorded the following information about you: Pulse Blood pressure Weight Height 104/minute 113/82 104 kg 1.854 m Dasia Roblero APRN.WASTEWATER SUPERVISOR 01/07/2022 8:48 AM Signed This note was created using [employer]. Subjective Raul Farah is a 51 year [...] - hydroCHLOROthiazide (more content not included)... Normal [facility] RAUL FARAH SR ([id number]) 1970 Date Time Provider Department 12/30/21 [facility] During your visit today, we recorded the following information about you: April Fabricio 12/30/2021 10:12 AM Signed I called Raul [...] Encounter Status:Closed by APRIL REGALADO on [facility]30[facility]21 [facility] Tele[facility] (CORIE) RAUL FARAH SR ([id number]) 1970 M Date Time Provider Department 12/28/21 [place] [facility] During your visit today, we recorded the following information about you: Maye Rehana Grissom [facility] 12/28/2021 4:20 PM Signed Patient called back and was notified of message that he would need a follow up before getting another refill. He states he is not coming in as long as we're in a pandemic. Dasia Roblero APRN.CNP 12/29/2021 9:57 AM Signed Noted, will not refill medication without at least one in person visit and labs yearly. Dasia Roblero APRN.CNP Allergies As of Date: 12/28/2021 Noted Allergy [...] Status:Closed by MAYE AGUIRRE on 01/12/22 Normal [facility] Javed XR Shoulder - right 3 Viewso n 10-29-2020 IMPRESSION: No radiographic evidence of acute osseous abnormality. Daycare Worker: PSCB Transcribe Date/Time: Oct 29 2020 12:05P Dictated by : ARASH GOODWIN MD This examination was interpreted and the report reviewed and electronically signed by: ARASH GOODWIN MD on Oct 29 2020 12:06PM [facility] DIVISION OF RADIOLOGY * * *Final Report* [...] Acromioclavicular joint intact. DIVISION OF RADIOLOGY Provider, [facility] - 10/29/2020 * * *Final Report* * [...] No radiographic evidence of acute osseous abnormality. Daycare Worker: [employer] Transcribe Date/Time: Oct 29 2020 12:05P Dictated by : ARASH GOODWIN MD This examination was interpreted and the report reviewed and electronically signed by: ARASH GOODWIN MD on Oct 29 2020 12:06PM [facility] Radiology Study observation (narrative) [facility] XR Shoulder - right 3 ViewsO rdered By: Tsering Provider on 10-29-2020 [facility] Lower Extremity Bilateral Venous Duplexon 04-12-2019 [facility] Lower Extremity Venous Duplex Report Patient Name: Raul Farah : 1970 (48yrs) Study Date: 04/12/2019 Age: 48 Account: [id number] Gender: M Loc: BP: Ordering: Katherine Mcdaniels Technologist: Ordering Physician: Katherine Mcdaniels Expeller Operator: Ema Levine RDMS, T Interpreting Physician: Edinson Herman MD Location: [facility] INDICATIONS: Edema of bilateral calves, left [...] performed. The images were obtained using a [employer] ASA Aplio vascular ultrasound machine. VENOUS FLOW AND IMAGING: [...] + Electronically signed by: Edinson Herman MD [id number]:00 [facility] [place], [place] José Luis, [facility] Incoming Cardiology Results From Herb/Jerry - 04/12/2019 2:55 PM EDT [facility] --------- --- Lower Extremity Venous Duplex Report Patient Name: Raul Farah : 1970 (48yrs) Study Date: 04/12/2019 Age: 48 Account: [id number] Gender: M Loc: BP: Ordering: Katherine Mcdaniels Technologist: Ordering Physician: Katherine Mcdaniels Expeller Operator: Ema Levine RDWV, RVT Interpreting Physician: Edinson Herman MD --------- --- Location: [facility] --------- --- INDICATIONS: Edema of bilateral calves, [...] performed. The images were obtained using a [employer] ASA Aplio vascular ultrasound machine. --------- --- VENOUS [...] --+ Electronically signed by: Edinson Herman MD [id number]:00 [facility], [place] VL Venous Duplex US Lower Ex t Bilateralon 04-12-2019 VL Venous Duplex US Lower Ext Bilateral Patient Name: RAUL FARAH Ultrasound Exam Date/Time 04/12/2019 13:55:00 EDT Exam VL Venous Duplex US Lower Ext Bilateral Ordering Physician KATHERINE MCDANIELS Accession Number [id number] CPT4 Codes 80146 () Reason For Exam r/o blood clot Report [facility] [place] --------- --- Lower Extremity Venous Duplex Report Patient Name: Raul Farah : 1970 (48yrs) Study Date: 04/12/2019 Age: 48 Account: [id number] Gender: M Loc: BP: Ordering: Katherine Mcdaniels Technologist: Ordering Physician: Katherine Mcdaniels Expeller Operator: Ema Levine RDMS, [facility] Interpreting Physician: Edinson Herman MD --------- --- Location: [facility] --------- --- INDICATIONS: Edema of bilateral [...] performed. The images were obtained using a [employer] ASA Aplio vascular ultrasound machine. --------- --- VENOUS [...] --+ Electronically signed by: Edinson Herman MD [id number] Final Dictated: 04/12/2019 2:55 pm Dictating Physician: EDINSON HERMAN Signed Date and Time: 04/12/2019 2:55 pm Signed by: EDINSON HERMAN [facility] CULTURE STAPH AUREUSon 02-03 CULTURE STAPH AUREUS CULTURE STAPH AUREU S --> Status: F No Staphylococcus aureus isolated. [facility] Comment on above: Order Comment: Speci men Source Comment:Nasal Performed By: #### C /SA #### [address] [place], [place] Comp Metabolic Panelon 02-01 Calcium [Mass/Vol] 10.0 mg/dL Normal 8.4-10.4 [facility] Comment on above: Performed By: #### H GHCT CMP3 #### [facility] [address] [place], [place] Glucose [Mass/Vol] 84 mg/dL Normal 70-100 [facility] Comment on above: Performed By: #### H GHCT CMP3 #### [place] [address] [address] [place], [place] ALP [Catalytic activity/Vol] 65 U/L Normal 38-126 [facility] Comment on above: Performed By: #### H GHCT CMP3 #### [place] [address] [address] [place], [place] ALT [Catalytic activity/Vol] 22 U/L Normal 13-69 [facility] Comment on above: Performed By: #### H GHCT CMP3 #### [place] [address] [address] [place], [place] Anion gap [Moles/Vol] 9 Normal [facility] Comment on above: Performed By: #### H GHCT, CMP3 #### [place] [address] [address] [place], [place] AST [Catalytic activity/Vol] 30 U/L Normal 15-46 [facility] Comment on above: Performed By: #### H GHCT CMP3 #### [place] [address] [address] [place], [place] Bilirubin [Mass/Vol] 0.7 mg/dL Normal 0.2-1.3 [facility] Comment on above: Performed By: #### H GHCT, CMP3 #### [place] [address] [address] [place], [place] CO2 [Moles/Vol] 28 mmol/L Normal 22-30 [facility] Comment on above: Performed By: #### H GHCT, CMP3 #### [place] [address] [address] [place], [place] Creatinine [Mass/Vol] 0.93 mg/dL Normal 0.52-1.25 [facility] Comment on above: Performed By: #### H DORI CMP3 #### [facility] [address] [place], [place] GFR/1.73 sq M predicted among blacks MDRD (S/P/Bld) [Vol rate/Area] mL/min/{1.73_m2} Normal >60 [facility] Comment on above: Performed By: #### H GHCT CMP3 #### [place] [address] [address] [place], [place] GFR/1.73 sq M predicted among non-blacks MDRD (S/P/Bld) [Vol rate/Area] mL/min/{1.73_m2} Normal >60 [facility] Comment on above: Result Comment: Sour ce- MDRD equation with creatinine calibration to IDMS(NKDEP) eGFR not recommended for drug dose adjustment Performed By: #### H DORI CMP3 #### [place] [address] [address] [place], [place] Protein [Mass/Vol] 8.2 g/dL Normal 6.3-8.2 [facility] Comment on above: Performed By: #### H DORI CMP3 #### [place] [address] [address] [place], [place] Urea nitrogen [Mass/Vol] 19 mg/dL Normal 7-20 [facility] Comment on above: Performed By: #### H OLIMPIACT CMP3 #### [place] [address] [address] [place], [place] Potassium [Moles/Vol] 4.3 mmol/L Normal 3.5-5.1 [facility] Comment on above: Performed By: #### H OLIMPIACT CMP3 #### [place] [address] [address] [place], [place] Sodium [Moles/Vol] 144 mmol/L Normal 135-145 [facility] Comment on above: Performed By: #### H GHCT, CMP3 #### [place] [address] [address] [place], [place] Albumin [Mass/Vol] 4.2 g/dL Normal 3.5-5.0 [facility] Comment on above: Performed By: #### H GHCT, CMP3 #### [address] [place], [place] Chloride [Moles/Vol] 107 mmol/L Normal 98-107 [facility] Comment on above: Performed By: #### H GHCT, CMP3 #### [place] [address] [place], [place] Hemoglobin AND Hematocriton 02-01-2019 Hematocrit (Bld) [Volume fraction] 44.2 % Normal 40.0-52.0 [facility] Comment on above: Performed By: #### H GHCT, CMP3 #### [address] [place] [address] [place], [place] Hemoglobin (Bld) [Mass/Vol] 15.3 g/dL Normal 13.0-18.0 [facility] Comment on above: Performed By: #### H GHCT, CMP3 #### [place] [address] [address] 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 ALLERGIES [...] January 11, 2019 TIME: 11:08 AM ] [facility] OPERATIVE NOon 01-11-2019 OPERATIVE NO HNO ID: [id number] Author: Toñito Stafford Service: Pain Management Author [...] DATE: January 11, 2019 TIME: 11:23 AM [facility] PT EDon 01-11-2019 PT ED HNO ID: [id number] Author: Katherine Jose RN Service: Nursing Author [...] Signed By: Katherine Jose RN In Department: [facility] SURGERY [facility] ED HNO ID: [id number] Author: Dimitri Curry RN Service: Nursing Author [...] Signed By: Dimitri Curry RN In Department: [facility] SURGERY [facility] XR FLUOROSCOPYon 01-11-2019 XR FLUOROSCOPY * * *Final Report* * * DATE OF EXAM: Jan 11 2019 11:24AM [facility] 5513 - XR FLUOROSCOPY / PROCEDURE REASON: [...] for further discussion. IMPRESSION: As discussed above Daycare Worker: CRISTÓBAL Transcribe Date/Time: Jan 11 2019 1:12P Dictated by : RAUL FARAH DO This examination was interpreted and the report reviewed and electronically signed by: RAUL FARAH DO on Jan 11 2019 1:12PM EST [id number] [facility] HOSPon 01-01-2019 HOSP Patient:Raul Farah MRN: Height:6' [...] the following basenames: K,HCT Progress Notes (PT [facility]): Cliff Chapman PT 01/04/2019 5:34 PM Signed Episode Visit [...] 12 Planned Treatment Interventions: Therapeutic exercise;Manual therapy;Neuromuscular re-education;Self-retirement management;Patient/Fam alvaro/Caregiver Education;Body Mechanics Training Patient demonstrates good understanding of plan of care and treatment. The above goals and plan of care were discussed and agreed upon by patient/family. SUBJECTIVE: Raul Farah is a 48 year old male [...] assessment of patient's response to intervention. Billing: [facility]: Evaluation - Low Complexity (83486) Therapeutic Exercise (01111): 1:1 time: 18 minutes (1 unit: 8-22 mins) Manual Therapy (35909): 1:1 time: 10 minutes (1 unit: 8-22 mins) Total time: 49 minutes Cliff Chapman PT Progress Notes ([facility]): Jayla Mejia 01/02/2019 3:02 PM Signed Patient [...] of complications with the refill. Please advise NATALIA Colmenares 01/03/2019 10:17 AM Signed I called the pharmacy and clarified the prescription. They have my most recent Rx of 300 mg pills 3 times a day. They refilled this for him this morning. I tried to call the patient and ended up leaving a message to take as directed and call me if there are any questions. NATALIA Colmenares [facility] Vital Signs Date Time Vital Sign Value Performing Clinician Facility 03-02-2025 14:39-0400 Diastolic blood pressure 93 mm[Hg] Nimisha Sorto APRN.CNP Work Phone: [facility] Comment on above: BP recheck 03-02-2025 14:39-0400 Systolic blood pressure 138 mm[Hg] Nimisha Sorto APRN.CNP Work Phone: [facility] Comment on above: BP recheck 03-02-2025 14:37-0400 Body mass index (BMI) [Ratio] 30.35 kg/m2 Nimisha Sorto APRN.CNP Work Phone: [facility] 03-02-2025 14:37-0400 Body temperature 97.59 [degF] Nimisha Sorto APRN.CNP Work Phone: [facility] 03-02-2025 14:37-0400 Body weight 104.33 kg Nimisha Kyner MOBILE HOME SERVICER.WASTEWATER SUPERVISOR Work Phone: [facility] 03-02-2025 14:37-0400 Heart rate 88 /min Nimisha Kyner MOBILE HOME SERVICER.WASTEWATER SUPERVISOR Work Phone: [facility] 03-02-2025 14:37-0400 Respiratory rate 18 /min Nimisha Kyner MOBILE HOME SERVICER.WASTEWATER SUPERVISOR Work Phone: [facility] 03-02-2025 14:37-0400 SaO2% (BldA) [Mass fraction] 97 % Nimisha Kyner MOBILE HOME SERVICER.WASTEWATER SUPERVISOR Work Phone: [facility] 04-02-2024 18:25-0400 Body temperature 98.1 [degF] Zaida Shevchuk MOBILE HOME SERVICER.WASTEWATER SUPERVISOR Work Phone: [facility] 04-02-2024 18:25-0400 Diastolic blood pressure 82 mm[Hg] Zaida Shevchuk MOBILE HOME SERVICER.WASTEWATER SUPERVISOR Work Phone: [facility] 04-02-2024 18:25-0400 Heart rate 106 /min Zaida Shevchuk MOBILE HOME SERVICER.WASTEWATER SUPERVISOR Work Phone: [facility] 04-02-2024 18:25-0400 Respiratory rate 16 /min Zaida Shevchuk MOBILE HOME SERVICER.WASTEWATER SUPERVISOR Work Phone: [facility] 04-02-2024 18:25-0400 SaO2% (BldA) [Mass fraction] 98 % Zaida Shevchuk MOBILE HOME SERVICER.WASTEWATER SUPERVISOR Work Phone: [facility] 04-02-2024 18:25-0400 Systolic blood pressure 122 mm[Hg] Zaida Shevchuk MOBILE HOME SERVICER.WASTEWATER SUPERVISOR Work Phone: [facility] 01-06-2022 14:59-0400 Body height 185.4 cm Dasia Zach MOBILE HOME SERVICER.WASTEWATER SUPERVISOR Work Phone: [facility] 01-06-2022 14:59-0400 Body weight 104.01 kg Dasia Zach MOBILE HOME SERVICER.WASTEWATER SUPERVISOR Work Phone: [facility] 01-06-2022 14:59-0400 Diastolic blood pressure 82 mm[Hg] Dasia Zach MOBILE HOME SERVICER.WASTEWATER SUPERVISOR Work Phone: [facility] 01-06-2022 14:59-0400 Heart rate 104 /min Dasia Zach MOBILE HOME SERVICER.WASTEWATER SUPERVISOR Work Phone: [facility] 01-06-2022 14:59-0400 Systolic blood pressure 113 mm[Hg] Dasia Zach MOBILE HOME SERVICER.WASTEWATER SUPERVISOR Work Phone: [facility] Encounters Encounter Date Encounter Type Care Provider Facility Start: 06-22-2025 ambulatory SUNNY REED Facilit y:[facility] Start: 04-06-2025 End: 04-06-[address] Edwina Barba DO Work Phone: -Laboratory Start: 04-06-2025 End: 04-06-2025 Patient encounter procedure SUNNY REED TRANSITIONAL STUDIES INSTRUCTOR-C -Laboratory Work Phone: Start: 04-06-2025 End: [facility] Start: 03-02-2025 End: 03-02-2025 ambulatory [facility] Facility:[id number] Start: 03-02-2025 End: 03-02-2025 Office outpatient visit 15 minutes Nimisha Sorto APRN.WASTEWATER SUPERVISOR Work Phone: [facility] Comment on above: Irritation of left e ye (Primary Dx) Start: 04-02-2024 End: 04-02-2024 ambulatory EDWINA BARBA Facility:[id number] Start: 04-02-2024 End: 04-02-2024 Patient encounter procedure Zaida Weeks MOBILE HOME SERVICER.WASTEWATER SUPERVISOR Work Phone: [facility] Comment on above: Sore throat (Primary Dx); Bacterial pharyngitis; Thrush Start: 10-02-2022 End: 10-03-2022 ambulatory EDWINA BARBA DO Facility:B Start: 10-02-2022 End: 10-02-2022 Patient encounter procedure EDWINA BABRA DO [facility] Start: 01-28-2022 Refill Dasia Roblero A PRN.WASTEWATER SUPERVISOR Work Phone: [facility] Comment on above: Refill Request Start: 01-06-2022 End: 01-06-2022 Patient encounter procedure Dasia Roblero MOBILE HOME SERVICER.WASTEWATER SUPERVISOR Work Phone: [facility] Comment on above: Essential hypertensi on (Primary Dx); Acute pain of left shoulder; Obesity, Class I, BMI 30-34.9; Screening for colon cancer Start: 12-30-2021 Telephone encounter Cheyenne Espitia MD Work Phone: [facility] Comment on above: Appointment Start: 12-28-2021 Telephone encounter Cheyenne Espitia MD Work Phone: [facility] Comment on above: Patient Update Start: 10-29-2020 End: 10-29-2020 Subsequent hospital visit by physician [facility] Work Phone: Radiology Comment on above: Acute pain of right shoulder [M25.511] Start: 06-14-2019 End: 06-14-2019 Subsequent hospital visit by physician Katherine Mcdaniels Work Phone: [facility] Start: 06-12-2019 End: 06-12-2019 Subsequent hospital visit by physician Katherine Mcdaniels Work Phone: [facility] Start: 06-07-2019 End: 06-07-2019 Subsequent hospital visit by physician Katherine Mcdaniels MD Work Phone: [facility] Start: 06-05-2019 End: 06-05-2019 Subsequent hospital visit by physician Katherine Mcdaniels Work Phone: [facility] Start: 05-31-2019 End: 05-31-2019 Subsequent hospital visit by physician Katherine Mcdaniels Work Phone: [facility] Start: 04-12-2019 End: 04-12-2019 Subsequent hospital visit by physician Katherine Mcdaniels Work Phone: [facility] Comment on above: Leg swelling Procedures Date Procedure Procedure Detail Performing Clinician Start: 04-06-2025 Urine microalbumin/creatinine ratio measurement Dr. Edwina Barba DO Work Phone: Start: 04-02-2024 End: 04-02-2024 Culture fngi mold/yeast prsmptv oth xcpt blood Zaida Weeks MOBILE HOME SERVICER.WASTEWATER SUPERVISOR Work Phone: Start: 01-06-2022 Adult depression scr eening assessment Dasia Roblero MOBILE HOME SERVICER.WASTEWATER SUPERVISOR Work Phone: Start: 01-03-2021 Lipid 1996 panel - S ann or Plasma Zaida Weeks MOBILE HOME SERVICER.WASTEWATER SUPERVISOR Work Phone: Start: 10-29-2020 Radex shoulder [...] DTaP,Tdap,Td Vaccine (3 - Td or Tdap) [facility] Start: 12-25-2030 Urine microalbumin profile DTAP,TDAP,TD (2 - Td or Tdap) [facility] Start: 01-03-2026 Lipid panel Lipid Screening [facility] Start: 01-03-2026 LIPID SCREEN LIPID SCREEN [facility] Start: 04-15-2025 Influenza vaccination Influenza Vacc ine (#1) [facility] Start: 01-06-2025 DIABETES SCREEN DIABETES SCREEN [facility] Start: 01-06-2025 Diabetes Screening Diabetes Screenin g [facility] Start: 04-15-2024 Covid-19 Vaccine ( season) Covid-19 Vaccine ( season) [facility] Start: 04-15-2024 Influenza vaccination Influenza Vacc ine (#1) [facility] Start: 01-04-2024 [facility] Start: 04-15-2023 Covid-19 Vaccine ( season) Covid-19 Vaccine ( season) [facility] Start: 01-06-2023 Adult depression screening assessment DEPRESSION SCREENING [facility] Start: 01-06-2023 ANNUAL PCP TEAM 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 GILLIAN DISEASE VISIT ANNUAL PCP TEAM CHRONIC DISEASE VISIT [facility] Start: 01-06-2023 BP CONTROLLED (<130/80) BP CONTROLLE D (<130/80) [facility] Start: 01-06-2023 COVID-19 VACCINE (#1) COVID-19 VACCI NE (#1) [facility] Comment on above: Postponed from 10/19 (Declined at this time)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
[2025-07-27 10:42] LABS: AST(SGOT) 19 U/L (<=37); Alanine Aminotransfer ALT/SGPT 18 U/L (<=46); Albumin, Serum 4.0 g/dL (3.5-5.0); Alkaline Phosphatase 43 U/L (40-129); Anion Gap 9 (5-15); BUN 12 mg/dL (4-19); BUN/Creat Ratio 11.0 RATIO (10-20); Calcium,Total 9.2 mg/dL (7.6-11.0); Carbon Dioxide 29.3 mmol/L (21.0-32.0); Chloride 102 mmol/L (98-108); Globulin 3.3 g/dL (2.2-4.2); Glucose 105 mg/dL (70-99); Potassium 3.6 mmol/L (3.3-5.1)
== END | disposition home or self-care (01) ==
LOC: LAB 09:37
PROVIDERS: PCP Preventive Medicine Occupational Medicine; Referring Provider Nurse Practitioner Family; Visit Provider Nurse Practitioner Family
DX: Z00.00 Encounter for general adult medical examination without abnormal findings (principal); E87.6 Hypokalemia
CPT/HCPCS: 36415; 80053